=== PATIENT | male | born 1935 | race Caucasian/White ===

== ENCOUNTER 2021-07-27 22:06 | Emergency (ER) | payer SELFPAY ==
[2021-07-27 22:10] VITALS: BP 182/78; PULSE 64; RESP 18; TEMP 36.8; O2SAT 94; BMI 26.1
--- NOTE | 2021-07-27 22:38 | RAD_ITS ---
STUDY: X-RAY - THORACIC SPINE REASON FOR EXAM: Male, 85 years old. injury TECHNIQUE: 3 view(s) of the thoracic spine were obtained. COMPARISON: None. FINDINGS: Normal kyphosis of the thoracic spine. There is no substantial scoliosis. There is demineralization of the thoracic spine with endplate spondylosis. Normal disc space heights. The soft tissue structures are unremarkable. RAD/Thoracic Spine 3 Views IMPRESSION: Endplate degenerative changes and diffuse demineralization with no evidence of underlying compression deformity. If continued back pain recommend MRI imaging as clinically warranted. Electronically Signed: Joe Zavaleta DO at 23:56 EDT , Service support ,
--- NOTE | 2021-07-27 22:38 | RAD_ITS ---
STUDY: X-RAY - LUMBAR SPINE REASON FOR EXAM: Male, 85 years old. injury TECHNIQUE: 3 view(s) of the lumbar spine were obtained. COMPARISON: None FINDINGS: Normal lumbar lordosis. There is no substantial scoliosis. There is a normal alignment of the vertebrae. There is multilevel endplate spondylosis of the lumbar vertebrae. Normal disc space heights. The soft tissue structures are unremarkable. RAD/Lumbar Spine 2 or 3 Views IMPRESSION: Diffuse demineralization with preserved disc space alignment. Electronically Signed: Joe Zavaleta DO at 23:43 EDT , Service support ,
--- NOTE | 2021-07-27 22:39 | EDS_ITS ---
HPI HPI - Fall History of Present Illness Chief Complaint: Fall Informant: patient and family Narrative Narrative: 85-year-old male presents the emergency room with low back pain following a fall. Patient states on Wednesday he was standing on a trailer helping to unload when he stepped into a hole fell off the trailer striking his back on the ground. No loss of consciousness. He notes pain over the upper lumbar lower thoracic region. Today in the afternoon was the first time the family was allowed to give him Tylenol as he was not want anything. He states it is gotten progressively worse. It is sharp with movement but otherwise a dull ache. Denies any radicular symptoms. PFSH PFSH Home Medications docusate sodium [Colace] 100 mg PO DAILY #10 cap 07/28/21 [Rx Last Taken Unknown] oxycodone-acetaminophen 1 tab PO Q6H PRN PRN 3 Days #12 tablet 07/28/21 [Rx Last Taken Unknown] Allergy/AdvReac Type Severity Reaction Status Date / Time No Known Allergies Allergy Verified 07/27/21 22:21 Social History (Updated 07/27/21 @ 22:[address] Dani Galan, DO) current gender identity: male Smoking Status: Former smoker substance use type: does not use ROS ROS ED Constitutional Constitutional ED: Denies chills or weight loss Eyes Eyes: Denies change in vision or diplopia ENT ENT ED: Denies ear pain, rhinorrhea or sore throat Cardiovascular Cardiovascular: Denies chest pain, orthopnea, palpitations or racing heartbeat Respiratory/Chest Respiratory/Chest: Denies cough, dyspnea or orthopnea Gastrointestinal Gastrointestinal: Denies abdominal pain, diarrhea, nausea or vomiting Genitourinary Genitourinary ED: Denies dysuria, hematuria or urinary frequency Musculoskeletal Musculoskeletal: Reports back pain; Denies arthralgias or myalgias Integumentary Denies abscess or rash Neurologic Neurologic: Denies headache(s) or weakness Psychiatric Psychiatric: Denies anxiety, depression, suicidal ideation or suicidal thoughts Endocrine Endocrinology: Denies polydipsia, polyphagia or polyuria Allergic/Immunologic Allergic/Immunologic ED: Denies mouth swelling, tongue swelling or urticaria EXAM Physical Exam Const Vital Signs: 07/27/21 22:10 07/27/21 23:36 Temperature 98.2 F Temperature Source Oral Pulse Rate 64 Respiratory Rate 18 Respiratory Effort Normal Blood Pressure 182/78 H Blood Pressure Mean 112 Pulse Ox 94 Oxygen Delivery Method Room Air Positive well nourished and well developed General Appearance ED: well developed HEENT Reports normocephalic, head/scalp atraumatic, TM's clear and moist mucous membranes atraumatic Tympanic Membrane ED: Yes TM's clear Eyes PERRL and EOMs intact bilaterally Neck full ROM, no lymphadenopathy, supple and no JVD Chest Wall inspection of chest normal Resp normal respiratory effort and clear to auscultation bilaterally Cardio regular rate, regular rhythm and no murmurs GI normal to inspection, nondistended, normoactive bowel sounds and non-tender Palpation: soft Back/Spine no CVA tenderness and normal ROM Back/Spine Narrative: Patient reports tenderness to palpation in the midline in the paraspinal musculature of the upper lumbar lower thoracic region. Extremity normal to inspection General Extremety ED: Negative for edema General Extremity: Negative for edema Neuro oriented x3 and CN's II-XII intact bilaterally Sensorium / Orientation: alert Motor Exam: strength 5/5 throughout Psych mental status grossly normal Mood & Affect: Negative for depressed or tearful Skin no rashes or lesions noted and no wounds MDM MDM MDM Narrative Medical decision making narrative: My interpretation of the plain films of the lumbar spine and thoracic spine showed no acute fracture. Patient received a dose of oxycodone here I can write for him to have some Percocet at home. Has been feeling constipated the past few days ever since the fall. I will write for some Colace that he may wish to picker and sorter load and unload some Dulcolax. Return if worsening or concerns Radiography Diagnostic Testing: Clinical Impression(s) from Imaging Studies Lumbar Spine X-Ray 07/27/21 22:38 IMPRESSION: Diffuse demineralization with preserved disc space alignment. Electronically Signed: Joe Zavaleta DO at 23:43 EDT , Service support , Thoracic Spine X-Ray 07/27/21 22:38 IMPRESSION: Endplate degenerative changes and diffuse demineralization with no evidence of underlying compression deformity. If continued back pain recommend MRI imaging as clinically warranted. Electronically Signed: Joe Zavaleta DO at 23:56 EDT , Service support , Discharge Plan Triage Chief Complaint: Fall ED Provider: Dani Galan Dx/Rx/DC Orders Clinical Impression: Acute lumbar myofascial strain Instructions: ED Back Sprain/Strain Prescriptions: New oxycodone-acetaminophen [oxycodone-acetaminophen] 1 TABLET tablet 1 tab PO Q6H PRN PRN (Reason: Pain) 3 Days Qty: 12 RF: 0 docusate sodium [Colace] 100 mg capsule 100 mg PO DAILY Qty: 10 RF: 0 Primary Care Provider: Care Physician,No Primary Referrals: Care Physician,No Primary [Primary Care Provider] - Disposition Disposition: Home, Self Care
[2021-07-27] MEDS: oxyCODONE 5 MG Tablet PO (23:33)
[2021-07-28 00:41] VITALS: BP 186/74; RESP 12
== END 2021-07-28 00:53 | disposition home or self-care (01) ==
PROVIDERS: Emergency Provider Emergency Medicine
DX: S39.012A Strain of muscle, fascia and tendon of lower back, initial encounter (principal); W17.89XA Other fall from one level to another, initial encounter; Y93.9 Activity, unspecified; Y92.9 Unspecified place or not applicable; Z87.891 Personal history of nicotine dependence
CPT/HCPCS: 72072; 72100; 99284; A4216

== ENCOUNTER 2022-11-14 17:05 | Inpatient (IN) | payer MEDICARE, SELFPAY ==
[2022-11-14] VITALS (11 sets, daily range): BP systolic 181–227; BP diastolic 71–112; PULSE 67–73; RESP 15–18; TEMP 36.7–36.8; O2SAT 76–97; BMI 25.7; BMI 24.2
--- NOTE | 2022-11-14 17:32 | CT_ITS ---
INDICATION: Right-sided abdominal pain EXAMINATION: CT ABDOMEN AND PELVIS WITH CONTRAST - CT Abdomen And Pelvis W/ Contrast Injection TECHNIQUE: Helically acquired images were obtained of the abdomen and pelvis following IV contrast. A radiation dose optimization technique was used for this scan. IV Contrast dosage and agent: 100 mL Isovue-370 Oral contrast: None. COMPARISON: None. FINDINGS: LOWER CHEST: Bibasilar groundglass and nodular infiltrates. No cardiomegaly or pericardial effusion. LIVER: Homogeneous. Multiple cysts. GALLBLADDER AND BILIARY TREE: No calcified gallstones. No gallbladder distension or wall edema. No intra- or extrahepatic biliary ductal dilation. PANCREAS: No focal cystic or solid mass. SPLEEN: Normal size without focal cystic or solid mass. ADRENAL GLANDS: No nodules. KIDNEYS AND URETERS: Right lower pole exophytic dense cyst. Multiple left renal cysts. No hydronephrosis. PERITONEUM: No ascites or free air. No other fluid collection. BOWEL: No evidence of acute appendicitis. No stomach or bowel distension. No focal inflammatory change. LYMPH NODES: No enlarged mesenteric or retroperitoneal lymph nodes. VESSELS: Aorta is non-dilated. URINARY BLADDER: Unremarkable. REPRODUCTIVE ORGANS: Enlarged prostate. ABDOMINAL WALL: No discrete abdominal or pelvic wall hernia. BONES: No lytic or blastic abnormality. CT/Abdomen/Pelvis W IV Cont ONLY IMPRESSION: 1. Dense right renal cyst may be hemorrhagic, which could explain right-sided pain. 2. Bilateral lung base infiltrates/chronic lung disease. Electronically Signed: Noé Olvera MD at 19:25 EST ,
--- NOTE | 2022-11-14 17:32 | EKG12_ITS ---
Test Reason : Blood Pressure : / mmHG Vent. Rate : 074 BPM Atrial Rate : 000 BPM P-R Int : 000 ms QRS Dur : 088 ms QT Int : 378 ms P-R-T Axes : 000 -05 077 degrees QTc Int : 419 ms Atrial fibrillation with premature ventricular or aberrantly conducted complexes Nonspecific ST and T wave abnormality Abnormal ECG Confirmed by HOPE LARRY, ENRIKE ([id number]), acquisition editor DIMA DUQUE ([id number]) on 11/16/2022 12:34:10 PM Referred By: Confirmed By:ENRIKE ARNETT MD
--- NOTE | 2022-11-14 17:33 | EDS_ITS ---
HPI <VIVIAN Nichols - Last Filed: 11/14/22 21:46> History of Present Illness Chief Complaint: Abd Pain Narrative Narrative: The patient is a 87-year-old male who does not see a primary care physician, who has not had any testing completed for multiple years presents to the [facility] for generalized malaise, generalized abdominal pain, decreased failure to thrive over the last 2 to 3 months. Patient arrives with his nephew. Patient states that over the last several weeks, he has had difficulty sleeping secondary to abdominal pain. Patient states he has no appetite. He believes something bad is going to happen. He has not seen a primary care physician or is on medications at this time. He denies any recent fever or chills. Denies any bowel or bladder incontinence, denies any blood in stool or vomit PFSH <VIVIAN Nichols - Last Filed: 11/14/22 21:46> PFSH Medical History (Updated 11/14/22 @ 21:[address] Andres Cortes MD) HTN (hypertension) Allergy/AdvReac Type Severity Reaction Status Date / Time No Known Allergies Allergy Verified 11/14/22 17:06 Family History (Updated 11/14/22 @ 21:[address] Andres Cortes MD) Other CVA (cerebral vascular accident) Cancer Surgical History (Updated 11/14/22 @ 21:[address] Andres Cortes MD) Hx of tonsillectomy Social History Smoking Status: Former smoker substance use type: does not use ROS <VIVIAN Nichols - Last Filed: 11/14/22 21:46> ROS ED ROS Narrative Constitutional: Negative for fever, chills, weight loss. Positive generalized weakness Eyes: Negative for vision loss, vision change, double vision ENT: Negative for any sore throat, ear pain, congestion Cardiovascular: Negative for any chest pain, tightness, palpitations Respiratory: Negative for any sputum production, hemoptysis, dyspnea, dyspnea on exertion, orthopnea. Positive intermittent cough Gastrointestinal: Negative for any nausea, vomiting, diarrhea, constipation, blood in stool, blood in vomit. Positive for abdominal pain : Negative for any urinary frequency, dysuria, retention, blood in urine Muscle skeletal: Negative for any muscle joint pain, stiffness, myalgias, arthralgias, neck pain, back pain Neurological: Negative for any headache, syncope, numbness or tingling, dizziness Skin: Negative for any rashes, lumps, itching, abrasions, lacerations Psychiatric: Negative for any depression, anxiety, stress, suicidal ideation, homicidal ideation Hematologic: Negative for any easy bruising, excessive bruising, easy bleeding Allergies: Negative for any eczema, hives, rash EXAM <VIVIAN Nichols - Last Filed: 11/14/22 21:46> Physical Exam Narrative Exam Narrative: Vital signs reviewed. Patient is tearful on initial exam. Patient has multiple minor complaints that has been going on for long periods of time. Patient alert and orient x4. HEET: Head normocephalic atraumatic, TMs clear bilaterally. Posterior pharynx is clear, moist mucous membranes. Nares clear bilaterally. Neck: Supple with no lymphadenopathy or tenderness. No signs of meningismus, negative jolt sign. Cardiac: Regular rate and rhythm no murmurs gallops or rubs, equal peripheral pulses bilaterally. Respiratory: Diminished lung sounds in the bases. No chest tenderness. Abdomen: Soft, nontender, nondistended. No abdominal bruit or pulsatile masses. No hepatosplenomegaly Extremities: No peripheral edema, no signs of gross trauma or deformity. Active full range of motion of all extremities. Neuro: Cranial nerves II through XII intact, no focal neurological deficits. Skin: Clean dry and intact with no rash, purpura, petechiae, vesicles or pustules. Backs/flank: No CVA tenderness, no midline spinal tenderness, no deformity. Psych: Normal mood and affect. No SI, HI or acute psychosis. Const Vital Signs: 11/14/22 17:06 11/14/22 18:07 11/14/22 18:30 Temperature 98.1 F Temperature Source Temporal Pulse Rate 71 Respiratory Rate 18 Blood Pressure 216/112 H 227/81 H 192/85 H Blood Pressure Mean 146 129 120 Pulse Ox 92 Oxygen Delivery Method Room Air Oxygen Flow Rate (L/min) 11/14/22 19:53 11/14/22 20:21 11/14/22 20:15 Temperature Temperature Source Pulse Rate 72 70 Respiratory Rate 15 16 16 Blood Pressure 207/94 H 193/71 H Blood Pressure Mean 131 111 Pulse Ox 90 96 76 Oxygen Delivery Method Room Air Nasal Cannula Room Air Oxygen Flow Rate (L/min) 2 Positive well nourished and well developed General Appearance ED: well developed <Dr. Demetri Patel DO - Last Filed: 11/14/22 22:47> Physical Exam Const Vital Signs: 11/14/22 17:06 11/14/22 18:07 11/14/22 18:30 Temperature 98.1 F Temperature Source Temporal Pulse Rate 71 Respiratory Rate 18 Blood Pressure 216/112 H 227/81 H 192/85 H Blood Pressure Mean 146 129 120 Pulse Ox 92 Oxygen Delivery Method Room Air Oxygen Flow Rate (L/min) 11/14/22 19:53 11/14/22 20:21 11/14/22 20:15 Temperature Temperature Source Pulse Rate 72 70 Respiratory Rate 15 16 16 Blood Pressure 207/94 H 193/71 H Blood Pressure Mean 131 111 Pulse Ox 90 96 76 Oxygen Delivery Method Room Air Nasal Cannula Room Air Oxygen Flow Rate (L/min) 2 MDM <VIVIAN Nichols - Last Filed: 11/14/22 21:46> MDM Lab Data Attestation: I reviewed the patient's lab results. Labs: Laboratory Results - last 24 hr 11/14/22 11/14/22 11/14/22 17:50 17:55 17:55 WBC 11.5 H RBC 4.51 L Hgb 14.4 Hct 43.8 MCV 97.1 H MCH 31.9 MCHC 32.9 RDW Std Deviation 48.1 H RDW Coeff of Sixto 13.3 Plt Count 466 H MPV 9.6 Immature Gran % (Auto) 0.400 Neut % (Auto) 73.4 H Lymph % (Auto) 15.4 L [place] % (Auto) 7.9 Eos % (Auto) 2.6 Baso % (Auto) 0.3 Absolute Neuts (auto) 8.5 H Absolute Lymphs (auto) 1.78 Nucleated RBC % 0 Sodium 140 Potassium 4.1 Chloride 104 Carbon Dioxide 29.0 Anion Gap 7 BUN 13 Creatinine 1.08 Estim Creat Clear Calc 53.26 Est GFR (MDRD) Af Amer 84 Est GFR (MDRD) Non-Af 69 BUN/Creatinine Ratio 12.0 Glucose 106 Calcium 9.5 Magnesium Total Bilirubin 0.60 Direct Bilirubin 0.19 AST 6 L ALT 15 L Alkaline Phosphatase 110 Troponin I High Sens 12 B-Natriuretic Peptide Total Protein 8.0 Albumin 3.7 Globulin 4.3 H Lipase 66 L TSH Urine Color Yellow Urine Clarity Clear Urine pH 6.5 Ur Specific [place] 1.010 Urine Protein 30 H Urine Glucose (UA) Normal Urine Ketones Negative Urine Occult Blood Negative Urine Nitrite Negative Urine Bilirubin Negative Urine Urobilinogen Normal Ur Leukocyte Esterase Negative Urine RBC 0 SEEN Urine WBC 0 SEEN Ur Squamous Epith Cells 0 SEEN Urine Bacteria 0 SEEN Urine Mucus 0 SEEN 11/14/22 11/14/22 17:55 17:55 WBC RBC Hgb Hct MCV MCH MCHC RDW Std Deviation RDW Coeff of Sixto Plt Count MPV Immature Gran % (Auto) Neut % (Auto) Lymph % (Auto) [place] % (Auto) Eos % (Auto) Baso % (Auto) Absolute Neuts (auto) Absolute Lymphs (auto) Nucleated RBC % Sodium Potassium Chloride Carbon Dioxide Anion Gap BUN Creatinine Estim Creat Clear Calc Est GFR (MDRD) Af Amer Est GFR (MDRD) Non-Af BUN/Creatinine Ratio Glucose Calcium Magnesium 2.3 Total Bilirubin Direct Bilirubin AST ALT Alkaline Phosphatase Troponin I High Sens B-Natriuretic Peptide 123.5 H Total Protein Albumin Globulin Lipase TSH 4.79 H Urine Color Urine Clarity Urine pH Ur Specific [place] Urine Protein Urine Glucose (UA) Urine Ketones Urine Occult Blood Urine Nitrite Urine Bilirubin Urine Urobilinogen Ur Leukocyte Esterase Urine RBC Urine WBC Ur Squamous Epith Cells Urine Bacteria Urine Mucus Radiography Diagnostic Testing: Clinical Impression(s) from Imaging Studies Abdomen/Pelvis CT 11/14/22 17:32 IMPRESSION: 1. Dense right renal cyst may be hemorrhagic, which could explain right-sided pain. 2. Bilateral lung base infiltrates/chronic lung disease. Electronically Signed: Noé Olvera MD at 19:25 EST , Chest X-Ray 11/14/22 18:50 IMPRESSION: Left lung base atelectasis/infiltrate. Electronically Signed: Noé Olvera MD at 20:43 EST , EKG Atrial fibrillation: Attestation: I personally reviewed and interpreted this EKG as follows: Comments: Atrial fibrillation with premature ventricular complexes, rate of 74 bpm, QRS duration 88 ms, no acute ST elevation, no acute infarct noted. Treatment and Re-Evaluation Narrative: All radiologic examinations were read, reviewed by the emergency department attending. From these reads, a plan of care will be put in place. Patient presents to the emergency department with elevated blood pressure, no significant red flag signs, no signs or symptoms of sepsis. Patient presents to the emergency department for ongoing shortness of breath, abdominal pain and not following up with any PCP. Patient did receive a full work-up. Patient's CBC showed a slight leukocytosis with white blood count 11.5. Patient's chemistries were unremarkable. Patient's lipase was negative, patient's troponin was 12 which was negative. Patient's EKG did show atrial fibrillation however the rate was controlled. There is no telling how long the patient has been in atrial fibrillation. Patient's blood pressure was elevated with 200/100, he was treated with 10 mg of hydralazine, new blood pressure was 193/71. Patient did receive a CT scan of the abdomen pelvis, this showed a dense right renal cyst may be hemorrhagic, which could explain right-sided pain. Bilateral lung base infiltrates, chronic lung disease. Patient did receive a 1 view chest x-ray, this did show left lung base atelectasis. Patient has no cough, infectious-like symptoms. Patient did ambulate around the department, patient's pulse oxygenation dropped to the high 70s. Patient will need to be admitted to the hospital. I did speak with cardiology who recommended possible CT scan of the chest to rule out a pulmonary embolus. Patient is admitted to hospitalist. He will follow-up on the CAT scan of the chest to rule out any pulmonary embolus <Dr. Demetri Patel, DO - Last Filed: 11/14/22 22:47> [facility] Narrative Medical decision making narrative: This patient was seen with a PA/CLEAN ROOM OPERATOR Individually assessed they patient including history and physical. I have reviewed everything on the chart that is available and agree with the documentation provided by the PA/CLEAN ROOM OPERATOR including discussion about the assessment, treatment plan, discussion, and return precautions. 87-year-old male initially presenting with complaints of abdominal pain, shortness of breath. Patient found to be significantly hypertensive. Patient reports that he had recently been very ill. Does not believe he had a fever. Differential includes but not limited to hypertension urgency, pneumonia, ACS, aortic dissection, bowel obstruction, viral etiology, PE. Patient noted to be slightly hypoxic. EKG is atrial fibrillation at a controlled ventricular response at 74 bpm. This would be new onset atrial fibrillation however. Patient does not know how long this has been present. CBC was obtained and shows no leukocytosis. Lab work otherwise was unremarkable. High since her troponin 12. Patient's blood pressure was addressed. He was given 10 mg of hydralazine. His blood pressure dropped to 193/71 from 227/81. C chest x-ray on my interpretation shows possible small bilateral infiltrates in the bases. Radiology interpretation agrees. Patient noted to be more hypoxic. He was ambulated in the hallway and dropped into the mid 70s on room air patient initially on 3 L of oxygen after this and then weaned to 2. CT of the abdomen pelvis was obtained initially as his chief complaint was abdominal pain and this shows a possible hemorrhagic cyst in the right kidney. Since the patient is not hypoxic I do need to rule out PE. Patient will need to be admitted so we will obtain a CTA. He will be given IV fluids per protocol. CTA performed today was negative for acute PE, dissection, but does show multifocal infiltrates. Patient was given Rocephin and azithromycin. Discussed with hospitalist for admission. Impression: 1. Bilateral pneumonia 2. Leukocytosis 3. Hypoxic respiratory failure 4. Abdominal pain 5. Hypertension 6. New onset A-fib Lab Data Labs: Laboratory Results - last 24 hr 11/14/22 11/14/22 11/14/22 17:50 17:55 17:55 WBC 11.5 H RBC 4.51 L Hgb 14.4 Hct 43.8 MCV 97.1 H MCH 31.9 MCHC 32.9 RDW Std Deviation 48.1 H RDW Coeff of Sixto 13.3 Plt Count 466 H MPV 9.6 Immature Gran % (Auto) 0.400 Neut % (Auto) 73.4 H Lymph % (Auto) 15.4 L [place] % (Auto) 7.9 Eos % (Auto) 2.6 Baso % (Auto) 0.3 Absolute Neuts (auto) 8.5 H Absolute Lymphs (auto) 1.78 Nucleated RBC % 0 Sodium 140 Potassium 4.1 Chloride 104 Carbon Dioxide 29.0 Anion Gap 7 BUN 13 Creatinine 1.08 Estim Creat Clear Calc 53.26 Est GFR (MDRD) Af Amer 84 Est GFR (MDRD) Non-Af 69 BUN/Creatinine Ratio 12.0 Glucose 106 Calcium 9.5 Magnesium Total Bilirubin 0.60 Direct Bilirubin 0.19 AST 6 L ALT 15 L Alkaline Phosphatase 110 Troponin I High Sens 12 B-Natriuretic Peptide Total Protein 8.0 Albumin 3.7 Globulin 4.3 H Lipase 66 L TSH Urine Color Yellow Urine Clarity Clear Urine pH 6.5 Ur Specific [place] 1.010 Urine Protein 30 H Urine Glucose (UA) Normal Urine Ketones Negative Urine Occult Blood Negative Urine Nitrite Negative Urine Bilirubin Negative Urine Urobilinogen Normal Ur Leukocyte Esterase Negative Urine RBC 0 SEEN Urine WBC 0 SEEN Ur Squamous Epith Cells 0 SEEN Urine Bacteria 0 SEEN Urine Mucus 0 SEEN 11/14/22 11/14/22 17:55 17:55 WBC RBC Hgb Hct MCV MCH MCHC RDW Std Deviation RDW Coeff of Sixto Plt Count MPV Immature Gran % (Auto) Neut % (Auto) Lymph % (Auto) [place] % (Auto) Eos % (Auto) Baso % (Auto) Absolute Neuts (auto) Absolute Lymphs (auto) Nucleated RBC % Sodium Potassium Chloride Carbon Dioxide Anion Gap BUN Creatinine Estim Creat Clear Calc Est GFR (MDRD) Af Amer Est GFR (MDRD) Non-Af BUN/Creatinine Ratio Glucose Calcium Magnesium 2.3 Total Bilirubin Direct Bilirubin AST ALT Alkaline Phosphatase Troponin I High Sens B-Natriuretic Peptide 123.5 H Total Protein Albumin Globulin Lipase TSH 4.79 H Urine Color Urine Clarity Urine pH Ur Specific [place] Urine Protein Urine Glucose (UA) Urine Ketones Urine Occult Blood Urine Nitrite Urine Bilirubin Urine Urobilinogen Ur Leukocyte Esterase Urine RBC Urine WBC Ur Squamous Epith Cells Urine Bacteria Urine Mucus Radiography Diagnostic Testing: Clinical Impression(s) from Imaging Studies Abdomen/Pelvis CT 11/14/22 17:32 IMPRESSION: 1. Dense right renal cyst may be hemorrhagic, which could explain right-sided pain. 2. Bilateral lung base infiltrates/chronic lung disease. Electronically Signed: Noé Olvera MD at 19:25 EST , Chest X-Ray 11/14/22 18:50 IMPRESSION: Left lung base atelectasis/infiltrate. Electronically Signed: Noé Olvera MD at 20:43 EST , Discharge Plan Disposition Disposition: Acute Care Hospital [facility] Discharge Date/Time: 11/14/22 22:22
[2022-11-14 17:52] LABS: Bacteria 0 SEEN /hpf (None Seen); Mucous, Urine 0 SEEN /hpf (<or=2+); Red Blood Cells-Urine 0 SEEN /hpf (0-5); Squamous Epithelial Cells - UA 0 SEEN /hpf (0-5); White Blood Cells 0 SEEN /hpf (0-5)
[2022-11-14 17:54] LABS: Color, Urine Yellow (Yellow); Glucose, Dipstick Normal (Normal); Ketone-Dipstick Negative (Negative); Leukocyte Esterase-Dipstick Negative /ul (Negative); Nitrite-Dipstick Negative (Negative); Occult Blood-Urine Negative /ul (Negative); Protein-Dipstick 30 mg/dl (Negative); Urine Bilirubin Dipstick Negative (Negative); Urine Clarity Clear (Clear); Urine Urobilinogen Normal (Normal); Urine pH 6.5 (5.0 - 8.0)
[2022-11-14] MEDS: Ondansetron 4 MG/2 ML Vial IV (18:04)
[2022-11-14] MEDS: Morphine 4 MG/ML Syringe IV (18:04)
[2022-11-14] MEDS: 0.9% Normal Saline 1,000 ML 1000 ML IV (18:05)
[2022-11-14 18:06] LABS: Absolute Lymphocyte Count 1.78 X10^3/uL (0.83-4.51); Absolute Neutrophil Count 8.5 X10^3/uL (2.0-7.7); Basophil# 0.04 X10^3/uL; Basophil% 0.3 % (0-1); Eosinophils% 2.6 % (0-5); Hematocrit 43.8 % (40-54); Hemoglobin 14.4 g/dL (13.0-16.5); Lymphocyte # 1.78 X10^3/ul (0.83-4.51); Lymphocyte % 15.4 % (19-41); Mean Corp Hgb Conc 32.9 g/dL (32-36); Mean Corpuscular Hgb 31.9 pg (27.0-32.0); Mean Corpuscular Volume 97.1 fL (80-94); Mean Platelet Vol. 9.6 fl (6.2-12.0); Monocyte# 0.91 X10^3/uL; Monocyte% 7.9 % (0-10); NRBC Flagged by Analyzer 0 % (0-5); Neutrophil # 8.45 X10^3/uL (2.7-7.7); Neutrophil % 73.4 % (47-70); Platelet Count 466 K/mm3 (150-450); RBC Distribution Width CV 13.3 % (11.6-14.6); RBC Distribution Width SD 48.1 fl (35.1-43.9); Red Blood Count 4.51 M/mm3 (4.6-6.2); White Blood Count 11.5 K/mm3 (4.4-11.0)
[2022-11-14 18:27] LABS: AST(SGOT) 6 U/L (15-37); Alanine Aminotransfer ALT/SGPT 15 U/L (16-61); Albumin, Serum 3.7 g/dL (3.2-5.0); Alkaline Phosphatase 110 U/L (45-117); Anion Gap 7 (5-15); BUN 13 mg/dL (7-18); Bilirubin, Direct 0.19 mg/dL (0.00-0.30); Calcium,Total 9.5 mg/dL (8.5-10.1); Chloride 104 mmol/L (98-107); Creatinine, Serum 1.08 mg/dL (0.70-1.30); EST Glomerular Filtration Rate 69 mL/min (>60); Est Glom Filt Rate - Afr Amer 84 mL/min (>60); Estimated Creatinine Clearance 53.26 ml/min; Globulin 4.3 g/dL (2.2-4.2); Glucose 106 mg/dL (74-106); Lipase 66 U/L (73-393); Potassium 4.1 mmol/L (3.5-5.1); Sodium Level 140 mmol/L (136-145); Troponin-I HS 12 pg/mL (3.0-78.0)
--- NOTE | 2022-11-14 18:50 | RAD_ITS ---
INDICATION: Cough EXAMINATION/TECHNIQUE: X-RAY - XR Chest 1 View COMPARISON: None. FINDINGS: LINES/DEVICES: None. LUNGS: Left lung base atelectasis/infiltrate. MEDIASTINUM AND CARDIOVASCULAR STRUCTURES: Cardiac silhouette not enlarged. Central airways and mediastinal contour are unremarkable. RAD/Chest 1 View (Portable) IMPRESSION: Left lung base atelectasis/infiltrate. Electronically Signed: Noé Olvera MD at 20:43 EST ,
[2022-11-14] MEDS: hydrALAZINE 20 MG/ML Vial 10 MG IV (19:04)
--- NOTE | 2022-11-14 20:57 | HP.PCM.HOS_ITS ---
HPI - General General Date of Admission: 11/14/22 Date of Service: 11/14/22 Chief Complaint: Anorexia HPI Narrative JOE RAMIREZ, is a 87 M with a significant history of hypertension; former tobacco abuse; and former alcoholic who has not seen a doctor for many years except ED visits in July 2021 presents emergency department with a neurology that started Wednesday before 2021. Reportedly he feels full and bloated all the time. Also he has a pain at the right lumbar area of his abdomen. He rated pain as 5/10. He described the pain as pain . Also a complaint of left sided pain that he states is episodic and occasionally can be severe. This pain he states when it comes on it can be a solid. Occasionally the pain radiates to his entire chest. Also he reports orthopnea and paroxysmal nocturnal dyspnea. He is unable to lay on his right side because of shortness of breath. He reports of edema in bilateral legs. Because of the edema he bought himself a ELIEL hose which she wears. At the time of presentation he had no edema. Patient reports palpitations. Also patient has had malaise. At the emergency department because patient was hypoxic with oxygen saturation in the 70s with ambulation decision was made for patient to stay at the hospital. CT chest at the emergency department showed a possible right hemorrhagic cyst. Also there was multiple liver cysts. And multiple left renal cyst. Patient was found to be in A-fib at a controlled rate. Emergency department doctor discussed with cardiology as the plan was to discharge patient home initially and to follow-up with cardiology. With hypoxia cardiology recommended a CT scan of patient's chest and also decision was made for patient to be admitt ed to the hospital [facility], [facility] Medical History HTN (hypertension) Allergy/AdvReac Type Severity Reaction Status Date / Time No Known Allergies Allergy Verified 11/14/22 17:06 Family History Other CVA (cerebral vascular accident) Cancer Surgical History Hx of tonsillectomy Social History housing: house Smoking Status: Former smoker substance use type: does not use ROS ROS Narrative Pertinent positives and pertinent negatives as noted in HPI. All other systems were reviewed and are negative Vital Signs Vital Signs Vital Signs: 11/14/22 17:06 11/14/22 18:07 11/14/22 18:30 Temperature 98.1 F Temperature Source Temporal Pulse Rate 71 Respiratory Rate 18 Blood Pressure 216/112 H 227/81 H 192/85 H Blood Pressure Mean 146 129 120 Pulse Ox 92 Oxygen Delivery Method Room Air Oxygen Flow Rate (L/min) 11/14/22 19:53 11/14/22 20:21 11/14/22 20:15 Temperature Temperature Source Pulse Rate 72 70 Respiratory Rate 15 16 16 Blood Pressure 207/94 H 193/71 H Blood Pressure Mean 131 111 Pulse Ox 90 96 76 Oxygen Delivery Method Room Air Nasal Cannula Room Air Oxygen Flow Rate (L/min) 2 Weight Weight: 83.915 kg Body Mass Index (BMI) 25.7 Physical Exam Narrative Physical exam: General: Well-nourished, well-developed. Head: Normocephalic, atraumatic, no tenderness Eyes: Vision is grossly intact. EOMI ENT, no trauma, moist mucous membranes, no rhinorrhea Neck: Nontender, No thyromegaly. CVS: Irregularly irregular rate and rhythm. S1-S2 present. No murmur, gallop or rub. Respiratory : clear to auscultation bilaterally, chest wall nontender, no wheezing Abdomen: Soft, nontender, nondistended, normal bowel sounds, no masses : Deferred Back: Nontender, no CVA tenderness, no midline spinal tenderness, deformities, step-offs Extremities: Nontender full range of motion, no trauma Skin: Normal color, no trauma, abrasions Neuro: Alert, oriented, cranial nerves II through XII grossly intact. Psychiatry: Normal mood. Normal affect. Not depressed. Not anxious. Results Lab / Micro Data Result Diagrams: 11/14/22 17:55 11/14/22 17:55 Labs: Laboratory Results - last 24 hr 11/14/22 17:50: Urine Color Yellow, Urine Clarity Clear, Urine pH 6.5, Ur Specific [place] 1.010, Urine Protein 30 H, Urine Glucose (UA) Normal, Urine Ketones Negative, Urine Occult Blood Negative, Urine Nitrite Negative, Urine Bilirubin Negative, Urine Urobilinogen Normal, Ur Leukocyte Esterase Negative, Urine RBC 0 SEEN, Urine WBC 0 SEEN, Ur Squamous Epith Cells 0 SEEN, Urine Bacteria 0 SEEN, Urine Mucus 0 SEEN 11/14/22 17:55: WBC 11.5 H, RBC 4.51 L, Hgb 14.4, Hct 43.8, MCV 97.1 H, MCH 31.9, MCHC 32.9, RDW Std Deviation 48.1 H, RDW Coeff of Sixto 13.3, Plt Count 466 H, MPV 9.6, Immature Gran % (Auto) 0.400, Neut % (Auto) 73.4 H, Lymph % (Auto) 15.4 L, [place] % (Auto) 7.9, Eos % (Auto) 2.6, Baso % (Auto) 0.3, Absolute Neuts (auto) 8.5 H, Absolute Lymphs (auto) 1.78, Nucleated RBC % 0 11/14/22 17:55: Sodium 140, Potassium 4.1, Chloride 104, Carbon Dioxide 29.0, Anion Gap 7, BUN 13, Creatinine 1.08, Estim Creat Clear Calc 53.26, Est GFR (MDRD) Af Amer 84, Est GFR (MDRD) Non-Af 69, BUN/Creatinine Ratio 12.0, Glucose 106, Calcium 9.5, Total Bilirubin 0.60, Direct Bilirubin 0.19, AST 6 L, ALT 15 L , Alkaline Phosphatase 110, Troponin I High Sens 12, Total Protein 8.0, Albumin 3.7, Globulin 4.3 H, Lipase 66 L Radiology Impression Abdomen/Pelvis CT 11/14/22 17:32 IMPRESSION: 1. Dense right renal cyst may be hemorrhagic, which could explain right-sided pain. 2. Bilateral lung base infiltrates/chronic lung disease. Electronically Signed: Noé Olvera MD at 19:25 EST , Chest X-Ray 11/14/22 18:50 IMPRESSION: Left lung base atelectasis/infiltrate. Electronically Signed: Noé Olvera MD at 20:43 EST , Assessment & Plan Assessment/Plan (1) Hypoxia: (2) Kidney cysts: (3) Liver cyst: (4) Hypertensive urgency: (5) Atrial fibrillation: PLAN: Plan Hypoxia Oxygen saturation in the 70s of ambulation Etiology unclear. Impression of abdomen/pelvis CT by radiologist: Bilateral infiltrates/chronic lung disease. Impression of x-ray by radiologist: Left lung base atelectasis/infiltrates. X- ray was independently visualized and interpreted and I agree with this in terpretation. Incentive spirometer ordered. Follow-up CTA chest. Rapid COVID and influenza screen ordered. CBC is only mildly elevated 11,500, trend. Atrial fibrillation EKG showed atrial fibrillation. Of note patient does not follow-up with a doctor so it is unclear how long he has been in A-fib. Patient is not a rapid ventricle response. No anticoagulation because of a possible hemorrhagic cyst of right kidney. TSH and magnesium ordered. Potassium 4.1. Hypertensive urgency Systolic blood pressure more than 180 on presentation. Patient reported that he has a diagnosis of hypertension but does not take any medication. In fact he has no PCP and follows up with no provider. Arterial duplex ultrasound of kidneys ordered. Hemorrhagic cyst and liver cyst. Ultrasound of kidneys ordered Chest pain EKG with A-fib. Trend troponin. Daily aspirin ordered. Check lipid profile. 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 No previous records to compare with. With patient age anticipates CKD. Creatinine is normal. Trend BMP. DVT prophylaxis: SCDs ordered. Charges/Coding Visit Charges Inpatient E&M: 24564 Init Hosp L3
--- NOTE | 2022-11-14 20:59 | CT_ITS ---
STUDY: CTA CHEST REASON FOR EXAM: Male, 87 years old. Hypoxia RADIATION DOSAGE (If Supplied By Facility): CTDIvol = ( 13.11 ) mGy, DLP = ( 475.69 ) mGycm TECHNIQUE: The examination was performed with the intravenous administration of IV 75 mL Isovue-370. Post-processing of the angiographic images was performed, with multiplanar reformation and 3D reconstruction. Individualized dose optimization techniques were used for this CT. COMPARISON: Same day chest x-ray FINDINGS: Normal enhancement of the main pulmonary artery and right and left pulmonary arteries. Normal enhancement of the bilateral peripheral pulmonary arteries. There is no demonstrated pulmonary embolism. Normal thoracic aorta and visualized great vessels. There is no demonstrated aortic dissection. Normal heart and pericardium. Normal mediastinum. Normal hilar regions. Normal visualized trachea and bronchi. The lungs are well expanded. Scattered tree-in-bud and nodular densities in both lungs. Normal pleura. Normal chest wall structures. Normal thoracolumbar vertebral alignment. CT/CTA Chest W/WO Contrast IMPRESSION: Findings suspicious for multifocal pulmonary infection. Normal CTA chest examination, without a demonstrated pulmonary embolism or arterial dissection. Electronically Signed: Noé Olvera MD at 22:29 [facility] ,
[2022-11-14 21:17] LABS: BNP,B-Type NATRIURETIC PEPTIDE 123.5 pg/mL (0-100)
[2022-11-14 21:30] LABS: Magnesium 2.3 mg/dL (1.6-2.6); Thyroid Stim Hormone (TSH) 4.79 uIU/mL (0.358-3.74)
--- NOTE | 2022-11-14 22:39 | ECHOD_ITS ---
Reason For Study: A. fib/flutter Procedure This was a 2D Doppler, Color Flow transthoracic echocardiogram. Exam performed portable in patient room. Left Ventricle Normal LV size. Mild concentric left ventricular hypertrophy. Left ventricular systolic function is normal. The estimated ejection fraction is 75 %. Unable to assess diastolic dysfunction due to arrhythmia. No regional wall motion abnormalities noted. Right Ventricle Normal RV size. Normal systolic function. Atria Normal left atrium. Normal right atrium. Mitral Valve Normal mitral valve. Tricuspid Valve Normal tricuspid valve. Mild (1+) tricuspid valve insufficiency. Pulmonary artery systolic pressure is 44 mmHg. Aortic Valve Normal aortic valve. Mild (1+) eccentric aortic valve insufficiency. Pulmonic Valve Normal pulmonic valve. Great Vessels Mild to moderately dilated aortic root. The pulmonary artery is normal size. Normal inferior vena cava. Pericardium/Pleural No pericardial effusion. MMode/2D Measurements & Calculations LVIDd: 4.6 cm IVSd: 1.4 cm Ao root diam: 4.1 cm LVIDs: 2.6 cm LVPWd: 1.4 cm RVDd: 3.3 cm FS: 44.3 % LAV(MOD-bp): 97.4 ml LVAd ap4: 32.0 cm2 LVAd ap2: 30.5 cm2 LAV(MOD-bp) Indexed: 49.1 ml/m2 LVLd ap4: 8.9 cm LVLd ap2: 8.7 cm LAV(MOD-sp2): 93.1 ml EDV(MOD-sp4): 97.0 ml EDV(MOD-sp2): 91.5 ml LAV(MOD-sp4): 88.1 ml EDV(sp4-el): 97.4 ml EDV(sp2-el): 90.4 ml LVAs ap4: 16.3 cm2 LVAs ap2: 15.1 cm2 LVLs ap4: 7.5 cm LVLs ap2: 7.4 cm ESV(MOD-sp4): 35.0 ml ESV(MOD-sp2): 27.5 ml ESV(sp4-el): 30.3 ml ESV(sp2-el): 26.3 ml EF(MOD-sp4): 63.9 % EF(MOD-sp2): 70.0 % EF(sp4-el): 68.9 % SV(MOD-sp4): 62.0 ml SV(MOD-sp2): 64.0 ml SV(sp4-el): 67.1 ml LA dimension(2D): 4.0 cm LA A4 area: 27.3 cm2 RA A4 area: 21.6 cm2 Doppler Measurements & Calculations MV E max srinath: 86.1 cm/sec Lat Peak E' Srinath: 10.9 cm/sec Med Peak E' Srinath: 10.2 cm/sec E/E' lat: 7.9 E/E' med: 8.5 Ao V2 max: 174.8 cm/sec AI max srinath: 409.6 cm/sec LV V1 max: 133.2 cm/sec Ao max P.2 mmHg AI max P.1 mmHg LV V1 max P.1 mmHg AI dec slope: 211.9 cm/sec2 AI P1/2t: 566.2 msec PA V2 max: 128.6 cm/sec TR max srinath: 318.1 cm/sec TR max P.5 mmHg ECHO/Echo Complete Interpretation Summary Normal LV size. Left ventricular systolic function is normal. The estimated ejection fraction is 75 %. Mild concentric left ventricular hypertrophy. Unable to assess diastolic dysfunction due to arrhythmia. Pulmonary artery systolic pressure is 44 mmHg. Mild to moderately dilated aortic root. Ordering Physician: Andres Cortes Performed By: Niya Mackey RDCS
[2022-11-14] MEDS: 0.9% Normal Saline 1,000 ML 100 ML IV (23:00)
[2022-11-14] MEDS: 0.9% Saline Lock 10 ML Syringe IV (23:27)
[2022-11-14 23:29] LABS: Troponin-I HS 18 pg/mL (3.0-78.0)
[2022-11-14] MEDS: Ceftriaxone 1 GM/50 ML BAG IV (23:30)
[2022-11-14] MEDS: amLODIPine 5 MG Tablet PO (23:45)
[2022-11-15] VITALS (8 sets, daily range): BP systolic 144–184; BP diastolic 63–93; PULSE 52–88; RESP 18–24; TEMP 36.4–36.9; O2SAT 93–97
[2022-11-15 03:13] LABS: Absolute Lymphocyte Count 1.65 X10^3/uL (0.83-4.51); Absolute Neutrophil Count 8.6 X10^3/uL (2.0-7.7); Basophil# 0.03 X10^3/uL; Basophil% 0.3 % (0-1); Eosinophil# 0.27 X10^3/uL; Eosinophils% 2.3 % (0-5); Hematocrit 37.8 % (40-54); Hemoglobin 12.3 g/dL (13.0-16.5); Lymphocyte # 1.65 X10^3/ul (0.83-4.51); Lymphocyte % 14.3 % (19-41); Mean Corp Hgb Conc 32.5 g/dL (32-36); Mean Corpuscular Hgb 31.9 pg (27.0-32.0); Mean Corpuscular Volume 98.2 fL (80-94); Mean Platelet Vol. 9.3 fl (6.2-12.0); Monocyte# 0.97 X10^3/uL; Monocyte% 8.4 % (0-10); NRBC Flagged by Analyzer 0 % (0-5); Neutrophil % 74.5 % (47-70); Platelet Count 369 K/mm3 (150-450); RBC Distribution Width CV 13.5 % (11.6-14.6); RBC Distribution Width SD 48.3 fl (35.1-43.9); Red Blood Count 3.85 M/mm3 (4.6-6.2); White Blood Count 11.5 K/mm3 (4.4-11.0)
[2022-11-15 03:45] LABS: Troponin-I HS 17 pg/mL (3.0-78.0)
[2022-11-15 03:51] LABS: Anion Gap 6 (5-15); BUN 12 mg/dL (7-18); BUN/Creat Ratio 12.8 RATIO (10-20); Calcium,Total 8.2 mg/dL (8.5-10.1); Chloride 106 mmol/L (98-107); Cholesterol 122 mg/dL (200); Creatinine, Serum 0.94 mg/dL (0.70-1.30); EST Glomerular Filtration Rate 81 mL/min (>60); Est Glom Filt Rate - Afr Amer 98 mL/min (>60); Estimated Creatinine Clearance 61.19 ml/min; Glucose 109 mg/dL (74-106); High Density Lipoprotein 37 mg/dL; Procalcitonin 0.07 ng/mL (0.00-0.09); Sodium Level 140 mmol/L (136-145); Triglycerides 75 mg/dL; Very Low Density Lipoprotein 15 mg/dL (5-40)
--- NOTE | 2022-11-15 05:55 | RDU_ITS ---
Reason For Study: HYPERTENSION Right Renal Artery Left Renal Artery Right renal artery ostium 90.7/14.4 Left renal artery ostium 88.9/16.3 RSV/EDV. PSV/EDV. Right renal artery proximal Left renal artery proximal PSV/EDV 73.0/14.4 PSV/EDV. 140.7/26.7 . Right renal artery mid 100.2/18.5 Left renal artery mid 104.4/16.3 PSV/EDV. PSV/EDV . Right renal artery distal 86.6/17.2 Left renal artery distal 135.5/24.1 PSV/EDV. PSV/EDV. Right Renal Parenchyma Left Renal Parenchyma Upper Pole Medula 48.2/10.6 Left upper pole medulla 39.9/6.7 PSV/EDV. PSV/EDV . Right upper pole medulla EDR 0.20 . Left upper pole medulla EDR 0.20 . Right upper pole medulla R.I. Left upper pole medulla R.I. 0.83 . 0.78 . UP Cortex 20.2/4.9 PSV/EDV. Upper Michael Cortx 19.2/5.6 PSV/EDV. Left upper pole cortex EDR 0.20 . Right upper pole cortex EDR 0.30 . Left upper pole cortex R.I. 0.76 . Right upper pole cortex R.I. 0.71 . Left lower Pole medulla 34.9/10.4 Right lower Pole medulla 48.2/13.2 PSV/EDV . PSV/EDV . Left lower pole medulla EDR 0.30 . Right lower pole medulla EDR 0.30 . Left lower pole medulla R.I. 0.70 . Right lower pole medulla R.I. Lower Pole Cortx 16.7/6.5 PSV/EDV. 0.73 . Left lower pole cortex EDR 0.72 . Lower Pole Cortex 19.8/6.3 PSV/EDV. Left lower pole cortex R.I. 0.30 . Right lower pole cortex EDR 0.30 . Left Renal Hilar Right lower pole cortex R.I. 0.68 . LT Hilar avg 74.8/14.6 PSV/EDV . Right Renal Hilar Left hilar acceleration time 50 Right Hilar avg 178.7/12.8 PSV/EDV. m/sec. Right hilar acceleration time 50 Left Renal Dimensions m/sec. Multiple cysts noted in LT Kidney Right Renal Dimensions measuring approximately 3.32cm x Right kidney size 10.78 cm . 3.27cm and 2.87cm x 4.15cm Right cortical dimension 1.73 cm . Measurements may be underestimated due to cysts. Left kidney size 8.95 cm . Left cortical dimension 1.02 cm . Aorta Unable to visualize prox AO due to gas / shadowing. Distal abdominal aorta 1.53 x 1.60 cm . Distal abdominal aorta peak systolic velocity is 108.6 cm/sec . Procedures Technically Difficult exam due to gas and labored breathing. VL/Renal Artery Duplex Ultrasound Interpretation Summary Right renal artery patent with normal velocities and no evidence of stenosis. Left renal artery patent with normal velocities and no evidence of stenosis. Right renal vein patent Left renal vein patent Right kidney normal in size Left kidney with multiple cysts, small in size Unable to visualize proximal aorta due to bowel gas Ordering Physician: Andres Cortes Referring Physician: N/A Performed By: Vasquez Mcgill RVT
[2022-11-15] MEDS: Albuterol 2.5 MG/3 ML VIAL.NEB. INHALATION (07:33)
--- NOTE | 2022-11-15 07:36 | CPS ---
Pt c/o trouble breathing, started prn aerosol but pt refused. says he has had trouble with inhalers in the past.
--- NOTE | 2022-11-15 07:37 | CPS ---
Declined PEP and I.S. @this time.
--- NOTE | 2022-11-15 07:38 | PN.HOSP_ITS ---
Reason for Visit Reason for Visit: Diagnoses Hypertensive urgency (11/14/22) Unspecified atrial fibrillation (11/14/22) Other specified diseases of liver (11/14/22) Cyst of kidney, acquired (11/14/22) Hypoxemia (11/14/22) Subjective Subjective Follow-up for shortness of breath possible current diagnosis COPD exacerbation with abdominal pain Objective Data Objective Data Vital Signs: Vital Signs Temp Pulse Resp BP Pulse Ox O2 Del Method O2 Flow Rate 97.8 F 85 24 H 144/65 H 93 Nasal Cannula 2 11/15/22 05:05 11/15/22 07:35 11/15/22 07:35 11/15/22 05:05 11/15/22 05:05 11/15/22 05:05 11/15/22 05:05 Oxygen Flow Rate (L/min) 2 Oxygen Delivery Method Nasal Cannula Weight: 173 lb 8.061 oz Body Mass Index (BMI) 24.2 Intake & Output: Intake and Output for Last 24 Hours 11/13/22 11/14/22 11/15/22 23:59 23:59 23:59 Intake Total 1050 / 1290 545 / 545 Output Total 350 / 350 Balance 1050 / 1290 195 / 195 Lab / Micro Data Result Diagrams: 11/15/22 03:04 11/15/22 03:04 Labs: Laboratory Results - last 24 hr 11/14/22 17:50: Urine Color Yellow, Urine Clarity Clear, Urine pH 6.5, Ur Specific [place] 1.010, Urine Protein 30 H, Urine Glucose (UA) Normal, Urine Ketones Negative, Urine Occult Blood Negative, Urine Nitrite Negative, Urine Bilirubin Negative, Urine Urobilinogen Normal, Ur Leukocyte Esterase Negative, Urine RBC 0 SEEN, Urine WBC 0 SEEN, Ur Squamous Epith Cells 0 SEEN, Urine Bacteria 0 SEEN, Urine Mucus 0 SEEN 11/14/22 17:55: WBC 11.5 H, RBC 4.51 L, Hgb 14.4, Hct 43.8, MCV 97.1 H, MCH 31.9, MCHC 32.9, RDW Std Deviation 48.1 H, RDW Coeff of Sixto 13.3, Plt Count 466 H, MPV 9.6, Immature Gran % (Auto) 0.400, Neut % (Auto) 73.4 H, Lymph % (Auto) 15.4 L, [place] % (Auto) 7.9, Eos % (Auto) 2.6, Baso % (Auto) 0.3, Absolute Neuts (auto) 8.5 H, Absolute Lymphs (auto) 1.78, Nucleated RBC % 0 11/14/22 17:55: Sodium 140, Potassium 4.1, Chloride 104, Carbon Dioxide 29.0, Anion Gap 7, BUN 13, Creatinine 1.08, Estim Creat Clear Calc 53.26, Est GFR (MDRD) Af Amer 84, Est GFR (MDRD) Non-Af 69, BUN/Creatinine Ratio 12.0, Glucose 106, Calcium 9.5, Total Bilirubin 0.60, Direct Bilirubin 0.19, AST 6 L, ALT 15 L , Alkaline Phosphatase 110, Troponin I High Sens 12, Total Protein 8.0, Albumin 3.7, Globulin 4.3 H, Lipase 66 L 11/14/22 17:55: B-Natriuretic Peptide 123.5 H 11/14/22 17:55: Magnesium 2.3, TSH 4.79 H 11/14/22 23:06: Troponin I High Sens 18 11/15/22 03:04: WBC 11.5 H, RBC 3.85 L, Hgb 12.3 L, Hct 37.8 L, MCV 98.2 H, MCH 31.9, MCHC 32.5, RDW Std Deviation 48.3 H, RDW Coeff of Sixto 13.5, Plt Count 369, MPV 9.3, Immature Gran % (Auto) 0.200, Neut % (Auto) 74.5 H, Lymph % (Auto) 14.3 L, [place] % (Auto) 8.4, Eos % (Auto) 2.3, Baso % (Auto) 0.3, Absolute Neuts (auto) 8.6 H, Absolute Lymphs (auto) 1.65, Nucleated RBC % 0 11/15/22 03:04: Sodium 140, Potassium 4.0, Chloride 106, Carbon Dioxide 28.0, Anion Gap 6, BUN 12, Creatinine 0.94, Estim Creat Clear Calc 61.19, Est GFR (MDRD) Af Amer 98, Est GFR (MDRD) Non-Af 81, BUN/Creatinine Ratio 12.8, Glucose 109 H, Calcium 8.2 L, Triglycerides 75, Cholesterol 122, LDL Cholesterol 70, VLDL Cholesterol 15, HDL Cholesterol 37 L 0212/23 03:04: Troponin I High Sens 17 11/15/22 03:04: Procalcitonin 0.07 Micro: Microbiology 11/15/22 01:11 Urine, Clean Catch Streptococcus pneumoniae Antigen (M - Final 11/14/22 23:10 Urine, Clean Catch Legionella Antigen - Final 11/14/22 21:03 Mucosa - Nose Influenza Types A,B Direct FA (RICARDA) - Final Radiography Diagnostic Testing: Radiology Impression Abdomen/Pelvis CT 11/14/22 17:32 IMPRESSION: 1. Dense right renal cyst may be hemorrhagic, which could explain right-sided pain. 2. Bilateral lung base infiltrates/chronic lung disease. Electronically Signed: Noé Olvera MD at 19:25 EST , Chest X-Ray 11/14/22 18:50 IMPRESSION: Left lung base atelectasis/infiltrate. Electronically Signed: Noé Olvera MD at 20:43 EST , Chest CTA 11/14/22 20:59 IMPRESSION: Findings suspicious for multifocal pulmonary infection. Normal CTA chest examination, without a demonstrated pulmonary embolism or arterial dissection. Electronically Signed: Noé Olvera MD at 22:29 EST , Physical Exam Narrative Patient was a chain smoker, about 3 packs daily for 30 years and then quit 40 years ago. Patient states he he was always short of breath for many years but got worse recently. Also complained of chest tightness intermittently sometimes on left side. Denies any prior history of heart and he states his heart is strong and does not have family history of DC. His family of a stroke and cancer. Patient also has chronic increased frequency urgency and incontinence and difficulty emptying bladder, and straining and obstructive symptoms. States sometimes dark urine but denies obvious bright red blood Physical exam: General: Fatigued, short of breath RADHA 24.2 kg/m? looks chronically sick HEENT: Atraumatic, PERRLA, EOMI, Normocephalic Oral: Mucosa dry. No Gingival or Mucosal Lesions/ Ulcerations Neck: Supple, No JVD, Negative Carotid Bruits Lungs: Air entry really diminished in bilateral lung bases. No obvious rhonchi or wheezing Cardiovascular: Irregular rate and rhythm, Normal S1, Normal S2, No murmurs Abdomen: bowel Sounds Present, Soft, Non-Distended. No palpable mass : Mild tenderness over right lumbar region on deep palpation No renal angle tenderness. No suprapubic tenderness. Extremities: No edema, Capillary Refill Less than 3 Seconds Skin: No rashes, No breakdown Musculoskeletal: No Tenderness to Palpation of Joints or Extremities Neurological: Cranial nerves II-XII grossly intact, DTR 2+/4 and Symmetrical Psych/Mental Status: Flat affect Assessment & Plan Assessment/Plan (1) Hypoxia: (2) Kidney cysts: (3) Liver cyst: (4) Hypertensive urgency: (5) Atrial fibrillation: PLAN: Plan 87-year-old male was admitted with came to ED for generalized malaise, generalized abdominal pain, no appetite, failure to thrive over the last 2 to 3 months patient. No fever or chills. Patient does not have a PCP and has not done lab testing PCU for syncope for many years. 1. Abdominal pain, etiology unclear probably due to right renal hemorrhagic cyst with irritative and obstructive symptoms possible BPH: Has been increasing for last [address] abdomen pelvis individually reviewed and shows dense right renal cyst, probably hemorrhagic.Ultrasound of kidneys ordered. Urology consulted. As per urologist, does not look like malignancy but may be complicated cyst with hemorrhagic cyst. Started on tamsulosin 0.4 mg daily. 2. Bilateral multiple scattered nodules possible atypical pneumonia complicated with hypoxia. Chronic lung disease, exact etiology unclear possible undiagnosed COPD exacerbation Oxygen saturation in the 70s of ambulation. Started on bronchodilator, IV Solu- Medrol, Mucinex, IV antibiotics Rocephin and Zithromax. Neurologist consult requested. CTA chest individually reviewed and shows scattered nodular bilateral densities with scattered tree-in-bud appearance. chronic lung disease. Negative for PE. Incentive spirometer ordered. Respiratory panel and COVID PCR ordered. 2D echo ordered Mildly elevated leukocytosis 3. Atrial fibrillation EKG showed atrial fibrillation. Of note patient does not follow-up with a do ctor so it is unclear how long he has been in A-fib. TSH 4.79. Free T3 ordered. Serum magnesium and potassium normal. Normal Patient is not a rapid ventricle response. No anticoagulation because of a possible hemorrhagic cyst of right kidney. 4. Hypertensive urgency: BP in triage was 216/112. Most recent 144/65. Systolic blood pressure more than 180 on presentation. Patient reported that he has a diagnosis of hypertension but does not take any medication. In fact he has no PCP and follows up with no provider. Arterial duplex ultrasound of kidneys ordered. Chest pain EKG with A-fib. Trend troponin. Daily aspirin ordered. Check lipid profile. 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 No previous records to compare with. With patient age anticipates CKD. Creatinine is normal. Trend BMP. DVT prophylaxis: SCDs ordered. Charges/Coding Visit Charges Inpatient E&M: 38490 Subs Hosp L3
[2022-11-15] MEDS: 0.9% Normal Saline 1,000 ML 100 ML IV (07:50)
[2022-11-15] MEDS: Ceftriaxone 1 GM/50 ML BAG IV ×2 (07:51→22:08)
[2022-11-15] MEDS: amLODIPine 5 MG Tablet PO (07:51)
[2022-11-15] MEDS: Aspirin 81 MG TAB.CHEW PO (07:55)
[2022-11-15] MEDS: 0.9% Saline Lock 10 ML Syringe IV ×2 (10:13→13:17)
--- NOTE | 2022-11-15 10:16 | CON.PCM.UR_ITS ---
Assessment & Plan Assessment/Plan (1) Kidney cysts: PLAN: Observation of the renal cyst does appear to be hemorrhagic cyst but does not look like a malignancy does not appear to enhance I would recommend we do an ultrasound of his kidneys to verify that this is a simple cyst or a complicated cyst with hemorrhagic cyst but not something acute would recommend observation. 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 As long as he tolerates this okay. HPI Consult Data Date of Consult: 11/15/22 HPI Narrative Reason for Consultation: Right renal mass and BPH with obstruction HPI Narrative: JOE RAMIREZ, is a 87 M who presents to the hospital mostly for lung problems and difficulty with breathing he had a CT scan done demonstrated what appeared to be a hemorrhagic mass in the lower pole of the right kidney but this does not look acute it looks chronic and also by my review it does not look like a malignancy this was explained to the patient but he does have memory problems and he was talking about his power of insurance attorney mostly. But again explained to the patient that this mass in the right lower pole of the kidney looks benign I see that an ultrasound is ordered which is appropriate. Also under his review of systems he does have frequent urination and BPH and obstructive urinary pattern can recommend we try some Flomax 0.4 mg to help him with his prostate problems. [facility] Medical History HTN (hypertension) Allergy/AdvReac Type Severity Reaction Status Date / Time No Known Allergies Allergy Verified 11/14/22 17:06 Family History Other CVA (cerebral vascular accident) Cancer Surgical History Hx of tonsillectomy Social History housing: house Smoking Status: Former smoker substance use type: does not use Medical Records Data Attestation: I reviewed the patient's medical records Lab / Micro Data Result Diagrams: 11/15/22 03:04 11/15/22 03:04 Labs: Laboratory Results - last 24 hr 11/14/22 17:50: Urine Color Yellow, Urine Clarity Clear, Urine pH 6.5, Ur Specific [place] 1.010, Urine Protein 30 H, Urine Glucose (UA) Normal, Urine Ketones Negative, Urine Occult Blood Negative, Urine Nitrite Negative, Urine Bilirubin Negative, Urine Urobilinogen Normal, Ur Leukocyte Esterase Negative, Urine RBC 0 SEEN, Urine WBC 0 SEEN, Ur Squamous Epith Cells 0 SEEN, Urine Bacteria 0 SEEN, Urine Mucus 0 SEEN 11/14/22 17:55: WBC 11.5 H, RBC 4.51 L, Hgb 14.4, Hct 43.8, MCV 97.1 H, MCH 31.9 , MCHC 32.9, RDW Std Deviation 48.1 H, RDW Coeff of Sixto 13.3, Plt Count 466 H, MPV 9.6, Immature Gran % (Auto) 0.400, Neut % (Auto) 73.4 H, Lymph % (Auto) 15.4 L, [place] % (Auto) 7.9, Eos % (Auto) 2.6, Baso % (Auto) 0.3, Absolute Neuts (auto) 8.5 H, Absolute Lymphs (auto) 1.78, Nucleated RBC % 0 11/14/22 17:55: Sodium 140, Potassium 4.1, Chloride 104, Carbon Dioxide 29.0, Anion Gap 7, BUN 13, Creatinine 1.08, Estim Creat Clear Calc 53.26, Est GFR (MDRD) Af Amer 84, Est GFR (MDRD) Non-Af 69, BUN/Creatinine Ratio 12.0, Glucose 106, Calcium 9.5, Total Bilirubin 0.60, Direct Bilirubin 0.19, AST 6 L, ALT 15 L , Alkaline Phosphatase 110, Troponin I High Sens 12, Total Protein 8.0, Albumin 3.7, Globulin 4.3 H, Lipase 66 L 11/14/22 17:55: B-Natriuretic Peptide 123.5 H 11/14/22 17:55: Magnesium 2.3, TSH 4.79 H 11/14/22 23:06: Troponin I High Sens 18 11/15/22 03:04: WBC 11.5 H, RBC 3.85 L, Hgb 12.3 L, Hct 37.8 L, MCV 98.2 H, MCH 31.9, MCHC 32.5, RDW Std Deviation 48.3 H, RDW Coeff of Sixto 13.5, Plt Count 369, MPV 9.3, Immature Gran % (Auto) 0.200, Neut % (Auto) 74.5 H, Lymph % (Auto) 14.3 L, [place] % (Auto) 8.4, Eos % (Auto) 2.3, Baso % (Auto) 0.3, Absolute Neuts (auto) 8.6 H, Absolute Lymphs (auto) 1.65, Nucleated RBC % 0 11/15/22 03:04: Sodium 140, Potassium 4.0, Chloride 106, Carbon Dioxide 28.0, Anion Gap 6, BUN 12, Creatinine 0.94, Estim Creat Clear Calc 61.19, Est GFR (MDRD) Af Amer 98, Est GFR (MDRD) Non-Af 81, BUN/Creatinine Ratio 12.8, Glucose 109 H, Calcium 8.2 L, Triglycerides 75, Cholesterol 122, LDL Cholesterol 70, VLDL Cholesterol 15, HDL Cholesterol 37 L 11/15/22 03:04: Troponin I High Sens 17 11/15/22 03:04: Procalcitonin 0.07 Micro: Microbiology 11/15/22 01:11 Urine, Clean Catch Streptococcus pneumoniae Antigen (M - Final 11/14/22 23:10 Urine, Clean Catch Legionella Antigen - Final 11/14/22 21:03 Mucosa - Nose Influenza Types A,B Direct FA (RICARDA) - Final Radiology Impression Abdomen/Pelvis CT 11/14/22 17:32 IMPRESSION: 1. Dense right renal cyst may be hemorrhagic, which could explain right-sided pain. 2. Bilateral lung base infiltrates/chronic lung disease. Electronically Signed: Noé Olvera MD at 19:25 EST , Chest X-Ray 11/14/22 18:50 IMPRESSION: Left lung base atelectasis/infiltrate. Electronically Signed: Noé Olvera MD at 20:43 EST , Chest CTA 11/14/22 20:59 IMPRESSION: Findings suspicious for multifocal pulmonary infection. Normal CTA chest examination, without a demonstrated pulmonary embolism or arterial dissection. Electronically Signed: Noé Olvera MD at 22:29 EST ,
--- NOTE | 2022-11-15 12:10 | CPS ---
Pt politely refused Respiratory Panel & covid PCR, also refusing aerosols. RN aware.
[2022-11-15] MEDS: Ensure Plus High Protein 120 ML LIQUID PO ×3 (13:16→22:09)
--- NOTE | 2022-11-15 17:10 | CON.PCM.CC_ITS ---
Assessment & Plan Assessment/Plan (1) Atrial fibrillation: PLAN: - His history of orthopnea, increasing leg edema recently, and new disc overy of atrial fibrillation suggest congestive heart failure with recent onset of hypoxemia, which may have happened, although his BNP is now near normal and not high enough to explain his severe hypoxemia and symptoms. However, I would recommend - controlling his blood pressure, atrial fibrillation and fluid status - obtain an echo and - have cardiology continue to follow him, with consideration for cardioversion. - He clearly needs to be on multiple new medications for these problems as an outpatient and has never been on them before. - Trial of diuresis - We will defer management to primary care and cardiology. (2) Pneumonitis: PLAN: The patient CT scan shows a centrilobular pattern and peribronchiolar inflammation, with relative sparing of the periphery and fissures, which has a very large differential diagnosis. It could include hematogenous spread of malignancy, infection including fungal, viral, and atypical bacteria such as nocardia Acinetobacter or Aspergillus. I recommend the following: - Sputum cultures for C&S, with extended incubation for fungus, Acinetobacter, and nocardia on special media. - Consider viruses such as CMV in this relatively immunocompromised gentleman -Await results of comprehensive respiratory PCR, including COVID. Influenza is negative this admission. - If the patient is unable to produce sputum, consider bronchoscopy with BAL, and send for the above cultures - His symptoms and presentation probably have a large cardiogenic component, see below. However, we need to carefully rule out an infectious etiology since he has been getting gradually worse. - After trial of diuresis, I like him to repeat a high definition noncontrast chest CT scan to look for cystic lung disease, because his initial CAT scan had significant motion artifact, and I was not able to distinguish possible pulmonary cysts from artifact, which would be interesting given his hepatic and renal cysts. (3) Hypertensive urgency: PLAN: Management per primary, patient has had uncontrolled severe hypertension for years (4) Acute respiratory failure with hypoxemia: PLAN: - Recheck chest x-ray in the a.m. - Titrate FiO2 to keep saturation greater than 92% due to his cardiac condition - He has a history of childhood severe asthma that he likely outgrew, and possible COPD from heavy smoking (60 pack years). However nebulizer treatments have not helped, and made him feel worse. - Recommend complete pulmonary function studies as soon as he is able to perform them. Hopefully when he is weaned off oxygen. PLAN: Plan In addition to the above, he has been failing at home, has been living independently, and case management and physical therapy should assess him for possible transfer to a skilled facility to rebuild his strength. He possibly could need skilled facility going forward, and is not likely to accept that idea. His CODE STATUS was reviewed today, he is DNI, DNR, CCA. His goal of hospitalization is to see if he can feel better, but does not want to undergo extensive painful treatment including surgery or dialysis if he should have medical indications for them. HPI Consult Data Date of Consult: 11/15/22 HPI Narrative Reason for Consultation: This 87-year-old man was admitted for worsening hypoxia and dyspnea. HPI Narrative: JOE RAMIREZ, is a 87 M who presents because of dyspnea to the emergency room where his O2 saturation was 70%. He was also found to be in atrial fibrillation and admitted for further management. He smoked 3 packs a day of Mariano strikes (unfiltered) cigarettes for 30 years, quit completely in his 40s. He has been gradually getting more short of breath, and since Thanksgiving its been worse, he has been gasping for breath at times, and has orthopnea, cannot lay flat because of dyspnea, has cough productive of yellowish sputum, no chest pain, does have abdominal pain. The day prior to admission, he complained of being very weak, very short of breath, unable to walk very far at home, with his worst symptoms being at night. He has had some confusion. He denies recent URI, hemoptysis, pneumonia, influenza, or COVID. He tried an inhaler and thought it made him worse.. His legs have been swelling more and bought some ELIEL hose to help with that. His blood pressure was over 198/80, and notably in July 2021 his blood pressure in the ER (for a fall) was 186 systolic. He has never been on antihypertensives. His BMI is 24. He has not had medical care in years. He had no primary care doctor. He lives in his own home independently, his nephew and power of privacy attorney lives nearby. His nephew was present during today's visit. He was not on medications, inhalers or oxygen in the past, occasionally taking [id number] medication. 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 His only other respiratory problem was pneumonia in rapid succession twice, 20 years ago, did not require hospitalization and returned to normal. He recalls having allergy test many years ago and was not sure of results. He has had immunizations for COVID and 1 flu shot according to him and his nephew. [facility] Medical History (Updated 11/15/22 @ 17:[address] Jaydon Casey MD) Acute respiratory failure with hypoxemia HTN (hypertension) Pneumonitis Allergy/AdvReac Type Severity Reaction Status Date / Time No Known Allergies Allergy Verified 11/14/22 17:06 Family History Other CVA (cerebral vascular accident) Cancer Surgical History Hx of tonsillectomy Social History housing: house Smoking Status: Former smoker substance use type: does not use Physical Exam Narrative Well-developed mildly confused pleasant elderly gentleman in mild to moderate respiratory distress. Unable to speak complete sentences at times due to dyspnea. Gurgling voice due to secretions. HEENT: No thrush, mucous membranes moist, neck is supple with no JVD thyromegaly or mass, Neck is supple with no emmanuel Chest: Diminished, hyperinflated, crackles in all lung cordero, some rhonchi present that raise with cough. No rub, no consolidation Heart irregularly irregular S1-S2 with no murmurs rubs or gallops s Abdomen is soft, mildly tender, mildly distended, with some air-filled loops of bowels palpable. Extremities have no clubbing cyanosis or edema, SCDs are in place. Patient states his edema is better since admission Neurologic exam is remarkable for fluctuating mental status, sometimes articulate speech sometimes not, nephew was present to help with his history. Grossly nonfocal, cranial nerves grossly intact Skin is warm and dry Medical Records Data Attestation: I reviewed the patient's medical records Lab / Micro Data Result Diagrams: 11/15/22 03:04 11/15/22 03:04 Labs: Laboratory Results - last 24 hr 11/14/22 17:50: Urine Color Yellow, Urine Clarity Clear, Urine pH 6.5, Ur Specific [place] 1.010, Urine Protein 30 H, Urine Glucose (UA) Normal, Urine Ketones Negative, Urine Occult Blood Negative, Urine Nitrite Negative, Urine Bilirubin Negative, Urine Urobilinogen Normal, Ur Leukocyte Esterase Negative, Urine RBC 0 SEEN, Urine WBC 0 SEEN, Ur Squamous Epith Cells 0 SEEN, Urine Bacteria 0 SEEN, Urine Mucus 0 SEEN 11/14/22 17:55: WBC 11.5 H, RBC 4.51 L, Hgb 14.4, Hct 43.8, MCV 97.1 H, MCH 31.9, MCHC 32.9, RDW Std Deviation 48.1 H, RDW Coeff of Sixto 13.3, Plt Count 466 H, MPV 9.6, Immature Gran % (Auto) 0.400, Neut % (Auto) 73.4 H, Lymph % (Auto) 15.4 L, [place] % (Auto) 7.9, Eos % (Auto) 2.6, Baso % (Auto) 0.3, Absolute Neuts (auto) 8.5 H, Absolute Lymphs (auto) 1.78, Nucleated RBC % 0 11/14/22 17:55: Sodium 140, Potassium 4.1, Chloride 104, Carbon Dioxide 29.0, Anion Gap 7, BUN 13, Creatinine 1.08, Estim Creat Clear Calc 53.26, Est GFR (MDRD) Af Amer 84, Est GFR (MDRD) Non-Af 69, BUN/Creatinine Ratio 12.0, Glucose 106, Calcium 9.5, Total Bilirubin 0.60, Direct Bilirubin 0.19, AST 6 L, ALT 15 L , Alkaline Phosphatase 110, Troponin I High Sens 12, Total Protein 8.0, Albumin 3.7, Globulin 4.3 H, Lipase 66 L 11/14/22 17:55: B-Natriuretic Peptide 123.5 H 11/14/22 17:55: Magnesium 2.3, TSH 4.79 H 11/14/22 23:06: Troponin I High Sens 18 11/15/22 03:04: WBC 11.5 H, RBC 3.85 L, Hgb 12.3 L, Hct 37.8 L, MCV 98.2 H, MCH 31.9, MCHC 32.5, RDW Std Deviation 48.3 H, RDW Coeff of Sixto 13.5, Plt Count 369, MPV 9.3, Immature Gran % (Auto) 0.200, Neut % (Auto) 74.5 H, Lymph % (Auto) 14.3 L, [place] % (Auto) 8.4, Eos % (Auto) 2.3, Baso % (Auto) 0.3, Absolute Neuts (auto) 8.6 H, Absolute Lymphs (auto) 1.65, Nucleated RBC % 0 11/15/22 03:04: Sodium 140, Potassium 4.0, Chloride 106, Carbon Dioxide 28.0, Anion Gap 6, BUN 12, Creatinine 0.94, Estim Creat Clear Calc 61.19, Est GFR (MDRD) Af Amer 98, Est GFR (MDRD) Non-Af 81, BUN/Creatinine Ratio 12.8, Glucose 109 H, Calcium 8.2 L, Triglycerides 75, Cholesterol 122, LDL Cholesterol 70, VLDL Cholesterol 15, HDL Cholesterol 37 L 11/15/22 03:04: Troponin I High Sens 17 11/15/22 03:04: Procalcitonin 0.07 Summary: BNP slightly elevated, white count slightly elevated with neutrophilia, glucose just above normal range. Strep and Legionella urine antigens negative, influenza a and B PCR negative COVID PCR pending My observation of the patient's CT scan, in addition to the below, shows a pattern of centrilobular and peribronchial inflammatory changes with relative sparing of the pleura and septae, distributed from the apex to the bases, with no pleural effusion. I agree this is infectious or inflammatory in nature, possibly by hematogenous spread. CTA Chest 11/14/22: COMPARISON:? Same day chest x-ray FINDINGS: Normal enhancement of the main pulmonary artery and right and left pulmonary arteries.? Normal enhancement of the bilateral peripheral pulmonary arteries.? There is no demonstrated pulmonary embolism. Normal thoracic aorta and visualized great vessels. There is no demonstrated aortic dissection. Normal heart and pericardium. Normal mediastinum.? Normal hilar regions. Normal visualized trachea and bronchi.? The lungs are well expanded. Scattered tree-in-bud and nodular densities in both lungs. Normal pleura. Normal chest wall structures. Normal thoracolumbar vertebral alignment. CT/CTA Chest W/WO Contrast IMPRESSION: Findings suspicious for multifocal pulmonary infection. Normal CTA chest examination, without a demonstrated pulmonary embolism or arterial dissection. ? Electronically Signed: Noé Olvera MD at 22:29 EST Micro: Microbiology 11/15/22 01:11 Urine, Clean Catch Streptococcus pneumoniae Antigen (M - Final 11/14/22 23:10 Urine, Clean Catch Legionella Antigen - Final 11/14/22 21:03 Mucosa - Nose Influenza Types A,B Direct FA (RICARDA) - Final Radiology Impression Abdomen/Pelvis CT 11/14/22 17:32 IMPRESSION: 1. Dense right renal cyst may be hemorrhagic, which could explain right-sided pain. 2. Bilateral lung base infiltrates/chronic lung disease. Electronically Signed: Noé Olvera MD at 19:25 EST Reading Location ID and State: [facility] / [place] Tel , Service support , Chest X-Ray 11/14/22 18:50 IMPRESSION: Left lung base atelectasis/infiltrate. Electronically Signed: Noé Olvera MD at 20:43 EST , Chest CTA 11/14/22 20:59 IMPRESSION: Findings suspicious for multifocal pulmonary infection. Normal CTA chest examination, without a demonstrated pulmonary embolism or arterial dissection. Electronically Signed: Noé Olvera MD at 22:29 EST ,
[2022-11-15] MEDS: Tamsulosin HCl 0.4 MG Capsule PO (18:26)
[2022-11-15] MEDS: guaiFENesin/D-Methorphan TAB.SR.12H 1 TABLET PO (22:08)
[2022-11-16 02:50] VITALS: BP 167/84; PULSE 68; RESP 18; TEMP 36.4; O2SAT 97
[2022-11-16 05:00] VITALS: BP 167/84; PULSE 68; RESP 18; TEMP 36.4; O2SAT 97
[2022-11-16 07:30] VITALS: O2SAT 92
--- NOTE | 2022-11-16 08:00 | US_ITS ---
STUDY: RENAL ULTRASOUND - COMPLETE REASON FOR EXAM: Male, 87 years old. History of renal cyst. TECHNIQUE: Ultrasound evaluation of the kidneys was performed with real-time and static kennedy-scale imaging. COMPARISON: Comparison is made with prior CT scan dated 11/14/2022. FINDINGS: RIGHT KIDNEY: Normal location of the right kidney, which is normal in size. The right kidney measures 12.2 cm x 5.8 cm x 6.7 cm. There is a normal cortex of the right kidney. The renal cortex measures 2.0 cm. There is a 4.5 cm x 3.7 cm x 3.4 cm solid heterogeneous nodule in the lower pole of the right kidney. A neoplastic process should be ruled out. . There are no right renal calculi. There is no right hydronephrosis. DISTAL RIGHT URETER: There is non-visualization of the distal right ureter. There is no demonstrated right ureterovesical junction calculus. There is a visualized right ureteral jet. LEFT KIDNEY: Normal location of the left kidney, which is normal in size. The left kidney measures 11.9 cm x 5.8 cm x 7.2 cm. There is a normal cortex of the left kidney. The renal cortex measures 1.7 cm. 2 cysts are seen in the lower pole. The larger cyst measures 5.9 cm x 5.1 cm x 3.9 cm. There are no left renal calculi. There is no left hydronephrosis. DISTAL LEFT URETER: There is non-visualization of the distal left ureter. There is no demonstrated left ureterovesical junction calculus. There is no demonstrated left ureteral jet. BLADDER: The distended urinary bladder has a volume of 196 ml. There is a normal wall thickness of the distended urinary bladder. There is no demonstrated mass within the urinary bladder. There are no demonstrated bladder calculi. US/Kidney and Bladder IMPRESSION: Heterogeneous nodule in the lower pole of the right kidney as described. A neoplastic process should BE ruled out. 2. Cysts are seen within the left kidney. Electronically Signed: Brady Lynn MD at 12:39 EST ,
[2022-11-16 09:30] VITALS: BP 180/70; PULSE 69; RESP 18; TEMP 36.7; O2SAT 92
--- NOTE | 2022-11-16 09:52 | PCM.PN.INT ---
Assessment & Plan Assessment/Plan (1) Hypertensive urgency: (2) Pneumonitis: PLAN: Plan RECOMMENDATIONS: 1. Await echocardiogram 2. Challenge with diuretics 3. Delirium protocol 4. Encourage incentive spirometer and out of bed as tolerated IMPRESSIONS: 1. Acute hypoxic respiratory insufficiency Unclear etiology. This does appear to be an atypical pattern. Patient is currently on steroids, antibiotics and mucolytic's. Viral work-up has been unremarkable at this time. Patient is not having fever or productive cough at this time. Patient does have a history of hypertensive urgency, A-fib and advanced age, so pulmonary edema would be a consideration. We will give patient diuretics. Patient would benefit from aggressive blood pressure control. Patient will need a walking oximetry prior to discharge. Encourage incentive spirometer and out of bed as tolerated. Patient will likely need a repeat CT scan in the future 2. A-fib/hypertensive urgency/possible CHF Patient's rate is relatively controlled at this time. However, patient with significant hypertension. Aggressive control of hypertension would be recommended. Patient does have preliminary secondary hypertension work-up ordered. 1 would expect some element of diastolic dysfunction given advanced age, but echocardiogram is currently pending. This would be exacerbated by RVR. Could consider cardioversion, but defer to cardiology. 3. CKD stage II/BPH/delirium/metabolic encephalopathy Complicates care, management, recovery and prognosis. Abdominal pain much improved at this time. Patient with some confusion overnight. This would be made worse by steroids, but patient is at high risk for obstructive lung disease and is requiring supplemental oxygen at this time. Patient would benefit from delirium protocol at this time. We will recheck labs tomorrow morning Subjective Subjective Patient did okay overnight from a hemodynamic standpoint. However, patient felt extremely confused and this scares me. Patient believes his breathing is somewhat improved compared to previous. Patient is not reporting any chest pain. Patient has not had a productive cough. Objective Data Objective Data Vital Signs: Vital Signs Temp Pulse Resp BP Pulse Ox O2 Del Method O2 Flow Rate 36.7 C 69 18 180/70 H 92 Room Air 3 11/16/22 09:30 11/16/22 09:30 11/16/22 09:30 11/16/22 09:30 11/16/22 09:30 11/16/22 09:30 11/16/22 09:30 Oxygen Flow Rate (L/min) 3 Oxygen Delivery Method Room Air Weight: 78.7 kg Body Mass Index (BMI) 24.2 Intake & Output: Intake and Output for Last 24 Hours 11/14/22 11/15/22 11/16/22 23:59 23:59 23:59 Intake Total 1050 / 1290 2455.00 / 2455.00 255 / 255 Output Total 1060 / 1060 350 / 350 Balance 1050 / 1290 1395.00 / 1395.00 -95 / -95 Lab / Micro Data Attestation: I reviewed the patient's lab results. Result Diagrams: 11/15/22 03:04 11/15/22 03:04 Labs: Laboratory Results - last 24 hr 11/15/22 15:35: COVID-19 (LU) Not Detected Micro: Microbiology 11/15/22 15:35 Mucosa - Nose Respiratory Panel (PCR) - Final 11/15/22 01:11 Urine, Clean Catch Streptococcus pneumoniae Antigen (M - Final 11/14/22 23:10 Urine, Clean Catch Legionella Antigen - Final 11/14/22 21:03 Mucosa - Nose Influenza Types A,B Direct FA (RICARDA) - Final Physical Exam Const alert Constitutional Narrative: Oriented x2. Anxious General Appearance: cooperative and well developed HEENT normocephalic, head/scalp atraumatic and moist oral mucous membranes Eyes PERRL and EOMs intact bilaterally Neck full ROM and no lymphadenopathy Resp normal respiratory effort and no use of accessory muscles Effort and Inspection: able to speak in complete sentences Auscultation: rales and diminished lung sounds; Negative for rhonchi or wheezes Percussion: Negative for dullness Cardio regular rate, S1 normal heart sound, S2 normal heart sound, no murmurs, no rub and no gallops Rhythm: abnormal rhythm irregularly irregular GI normal to inspection, nondistended, normoactive bowel sounds no CVA tenderness Extremity no clubbing, cyanosis or edema Skin no rashes or lesions noted Neuro oriented x3, CN's II-XII intact bilaterally, moves all extremities and no focal motor deficits Psych cooperative and affect normal Charges/Coding Visit Charges Inpatient E&M: 30218 Subs Hosp L2
[2022-11-16] MEDS: Losartan Potassium 25 MG Tablet 50 MG PO (09:53)
[2022-11-16] MEDS: Aspirin 81 MG TAB.CHEW PO (09:53)
[2022-11-16] MEDS: Ceftriaxone 1 GM/50 ML BAG IV ×2 (09:53→22:12)
[2022-11-16] MEDS: amLODIPine 5 MG Tablet PO (09:53)
[2022-11-16] MEDS: guaiFENesin/D-Methorphan TAB.SR.12H 1 TABLET PO ×2 (09:53→22:06)
[2022-11-16] MEDS: 0.9% Saline Lock 10 ML Syringe IV ×3 (09:54→22:06)
[2022-11-16] MEDS: Ensure Plus High Protein 120 ML LIQUID PO ×4 (09:55→22:12)
[2022-11-16] MEDS: Furosemide 20 MG/2 ML VIAL IV (11:07)
--- NOTE | 2022-11-16 12:16 | CHAPLAIN ---
Type of Pastoral Visit _x__ Initial Visit ___ Follow-up Visit ___ On-call Visit ___ General Patient Visit ___ Spiritual Assessment ___ Family Conference ___ Bereavement ___ Rapid Response ___ Code Blue ___ Other (describe below) Pastoral Care Referral From _x__ Patient ___ Family _x__ Nurse ___ Physician ___ Laminating Press Operator ___ Fire Safety Inspector ___ Other (describe below) Sacrament/Intervention _x__ Active listening ___ Anointing ___ Uatsdin ___ Bereavement ___ Communion _x__ Isabela exploration ___ _x__ Life review _x__ Prayer ___ Reconciliation ___ Sacrament of Sick _x__ Supportive presence ___ Wedding ___ Other (describe below) Pastoral Comments patient requested spiritual care support; pt gives lengthy life review and spiritual background; pt describes his situation and that he is recently and moved back to [place] from [place]; pt desires to have spiritual care and prayer for support;
--- NOTE | 2022-11-16 13:50 | CASEMGMT ---
TIMOTHY IBRAHIM Face to Face with patient for initial transition planning/care coordination assessment. RN CM introduced self and role at [facility]. Patient lying in bed, alert and oriented, girlfriend at bedside. Patient willing to participate in assessment and is able to answer all questions appropriately. Care providers, pharmacy, and demographics verified. Patient wishes to discharge home, will montior progress with therapy. Patient states he has no further needs or concerns at this time. CM to follow for discharge planning needs that may arise. PCP: No PCP, patient provided with PCP list to review with nephew his HPOA Specialists: none Preferred Pharmacy: [facility] Insurance: [facility] Prescription Benefit: none Living Will/HPOA: yes, nephew Cliff Hawkins LNOK: nephew Living Arrangements: Patient lives alone but girlfriend stays with him often. Patient lives in a single story apartment with no steps to enter. Patient states he is independent at home. Transportation: self, girlfriend DME/HHC: Patient has raised toilet, lift chair, walker, wheelchair at home. No previous HHC or SNF. Will monitor progress with therapy and need for home oxygen Disposition Plan: Patient to discharge home with family support and follow-up plans in place. Will monitor for home oxygen or therapy. Maribel FRANCO, RN, CM
[2022-11-16 14:51] VITALS: BP 156/63; PULSE 65; RESP 16; TEMP 36.7; O2SAT 95
--- NOTE | 2022-11-16 14:56 | PCM.PN.HOSP ---
Reason for Visit Reason for Visit: Diagnoses Hypertensive urgency (11/14/22) Unspecified atrial fibrillation (11/14/22) Pneumonia, unspecified organism (11/14/22) Acute respiratory failure with hypoxia (11/14/22) Other specified diseases of liver (11/14/22) Other obstructive and reflux uropathy (11/14/22) Cyst of kidney, acquired (11/14/22) Benign prostatic hyperplasia with lower urinary tract symptoms (11/14/22) Hypoxemia (11/14/22) Subjective Subjective Follow-up for severe shortness of breath with 60 pack years of smoking cigarettes. Objective Data Objective Data Vital Signs: Vital Signs Temp Pulse Resp BP Pulse Ox O2 Del Method O2 Flow Rate 98.0 F 65 16 156/63 H 95 Nasal Cannula 3.5 11/16/22 14:51 11/16/22 14:51 11/16/22 14:51 11/16/22 14:51 11/16/22 14:51 11/16/22 14:51 11/16/22 14:51 Oxygen Flow Rate (L/min) 3.5 Oxygen Delivery Method Nasal Cannula Weight: 173 lb 8.061 oz Body Mass Index (BMI) 24.2 Intake & Output: Intake and Output for Last 24 Hours 11/14/22 11/15/22 11/16/22 23:59 23:59 23:59 Intake Total 1050 / 1290 2455.00 / 2455.00 305 / 305 Output Total 1060 / 1060 350 / 350 Balance 1050 / 1290 1395.00 / 1395.00 -45 / -45 Lab / Micro Data Result Diagrams: 11/15/22 03:04 11/15/22 03:04 Labs: Laboratory Results - last 24 hr 11/15/22 15:35: COVID-19 (LU) Not Detected Micro: Microbiology 11/15/22 15:35 Mucosa - Nose Respiratory Panel (PCR) - Final 11/15/22 01:11 Urine, Clean Catch Streptococcus pneumoniae Antigen (M - Final 11/14/22 23:10 Urine, Clean Catch Legionella Antigen - Final 11/14/22 21:03 Mucosa - Nose Influenza Types A,B Direct FA ([facility]) - Final Radiography Diagnostic Testing: Radiology Impression Renal Ultrasound 11/16/22 08:00 IMPRESSION: Heterogeneous nodule in the lower pole of the right kidney as described. A neoplastic process should BE ruled out. 2. Cysts are seen within the left kidney. Electronically Signed: Brady Lynn MD at 12:39 EST , Physical Exam Narrative Patient is hard of hearing. States mild improvement in shortness of breath. Denies hematuria. Physical exam: General: Fatigued, short of breath RADHA 24.2 kg/m? looks chronically sick HEENT: Atraumatic, PERRLA, EOMI, Normocephalic Oral: Mucosa dry. No Gingival or Mucosal Lesions/ Ulcerations Neck: Supple, No JVD, Negative Carotid Bruits Lungs: Air entry severely and diffusely diminished in both lungs. No obvious rhonchi or wheezing Cardiovascular: Irregular rate and rhythm, Normal S1, Normal S2, No murmurs Abdomen: bowel Sounds Present, Soft, Non-Distended. No palpable mass : Mild tenderness over right lumbar region on deep palpation, slightly better. No renal angle tenderness. No suprapubic tenderness. Extremities: No edema, Capillary Refill Less than 3 Seconds Skin: No rashes, No breakdown Musculoskeletal: No Tenderness to Palpation of Joints or Extremities Neurological: Cranial nerves II-XII grossly intact, DTR 2+/4 and Symmetrical Psych/Mental Status: Flat affect Assessment & Plan Assessment/Plan (1) Hypoxia: (2) Kidney cysts: (3) Liver cyst: (4) Hypertensive urgency: (5) Atrial fibrillation: PLAN: Plan 87-year-old male was admitted with came to ED for generalized malaise, generalized abdominal pain, no appetite, failure to thrive over the last 2 to 3 months patient. No fever or chills. Patient does not have a PCP and has not done lab testing PCU for syncope for many years. 1. Abdominal pain, etiology unclear probably due to right renal hemorrhagic cyst with irritative and obstructive symptoms possible BPH: Has been increasing for last [address] abdomen pelvis individually reviewed and shows dense right renal cyst, probably hemorrhagic.Ultrasound of kidneys ordered. Urology consulted. As per urologist, does not look like malignancy but may be complicated cyst with hemorrhagic cyst. Started on tamsulosin 0.4 mg daily. 11/16: Discussed with the urologist Dr. Menjivar. Kidney ultrasound shows complicated, heterogenous, solid right renal cyst therefore suggestive of neoplasm. Dr. Menjivar suggested outpatient follow-up and patient is reluctant for invasive work-up or surgery. Abdominal pain is better. No hematuria noticed. 2. Bilateral multiple scattered nodules possible atypical pneumonia complicated with hypoxia. Chronic lung disease with shortness of breath for many years but acute worsening, exact etiology unclear possible undiagnosed COPD exacerbation Oxygen saturation in the 70s of ambulation. Started on bronchodilator, IV Solu-Medrol, Mucinex, IV antibiotics Rocephin and Zithromax. Patient was a chain smoker, about 3 packs daily for 30 years and then quit 40 years ago. CTA chest individually reviewed and shows scattered nodular bilateral densities with scattered tree-in-bud appearance. chronic lung disease. Negative for PE. Incentive spirometer ordered. Respiratory panel and COVID PCR ordered. Mildly elevated leukocytosis 11/16: Pulmonary consult suggested sputum culture but patient not having significant sputum for culture of fungus, atypical bacteria, nocardia or Acinetobacter. Need to follow-up in pulmonary clinic. Discussed with the database tester. Lasix 20 mg IV 1 dose ordered as diuretic challenge. 3. Atrial fibrillation EKG showed atrial fibrillation. Of note patient does not follow-up with a doctor so it is unclear how long he has been in A-fib. TSH 4.79. Free T4 ordered. Serum magnesium and potassium normal. Heart rate is controlled. No anticoagulation because of a possible hemorrhagic cyst of right kidney. 4. Hypertensive urgency: BP in triage was 216/112. Most recent 144/65. Systolic blood pressure more than 180 on presentation. Patient reported that he has a diagnosis of hypertension but does not take any medication. In fact he has no PCP and follows up with no provider. 5. Atypical chest pain: Patient denies history of coronary artery disease or other cardiac disease denies family history of [place]. His family of a stroke and cancer. 2D echo shows mild concentric LVH with EF 75%, PASP 44 mmHg suggestive of mild pulmonary hypertension. Serial troponins are negative. ACS ruled out. Fasting profile shows LDL 70, HDL 37. 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 No previous records to compare with. With patient age anticipates CKD. Creatinine is normal. Trend BMP. DVT prophylaxis: SCDs ordered. Total time of the visit including total time spent in counseling or coordination of care, (more than 50% of the total time, spent in obtaining medical information from nurses and other ancillary care providers,explaining to the patient about labs, imaging, diagnosis and management of active complex medical conditions), discussion with database tester, review of labs and imaging, clinical update to the patient's family's girlfriend near the bedside is 40 minutes. Clinical Impression(s) from Imaging Studies Abdomen/Pelvis CT 11/14/22 17:32 IMPRESSION: 1. Dense right renal cyst may be hemorrhagic, which could explain right-sided pain. 2. Bilateral lung base infiltrates/chronic lung disease. Electronically Signed: Noé Olvera MD at 19:25 EST , Chest X-Ray 11/14/22 18:50 IMPRESSION: Left lung base atelectasis/infiltrate. Electronically Signed: Noé Olvera MD at 20:43 EST Reading Location ID and State: [facility] / [place] Tel , Service support , Chest CTA 11/14/22 20:59 IMPRESSION: Findings suspicious for multifocal pulmonary infection. Normal CTA chest examination, without a demonstrated pulmonary embolism or arterial dissection. Electronically Signed: Noé Olvera MD at 22:29 EST , Echocardiogram 11/14/22 22:39 Interpretation Summary Normal LV size. Left ventricular systolic function is normal. The estimated ejection fraction is 75 %. Mild concentric left ventricular hypertrophy. Unable to assess diastolic dysfunction due to arrhythmia. Pulmonary artery systolic pressure is 44 mmHg. Mild to moderately dilated aortic root. Ordering Physician: Andres Cortes Performed By: Niya Mackey RDCS Renal Ultrasound 11/16/22 08:00 IMPRESSION: Heterogeneous nodule in the lower pole of the right kidney as described. A neoplastic process should BE ruled out. 2. Cysts are seen within the left kidney. Charges/Coding Visit Charges Inpatient E&M: 70186 Subs Hosp L3
[2022-11-16] MEDS: Tamsulosin HCl 0.4 MG Capsule PO (17:29)
[2022-11-16 22:04] VITALS: BP 144/65; PULSE 55; RESP 20; TEMP 36.7; O2SAT 94
[2022-11-17] VITALS (7 sets, daily range): BP systolic 141–171; BP diastolic 58–86; PULSE 65–80; RESP 16–18; TEMP 36.4–37.1; O2SAT 92–96
[2022-11-17 05:55] LABS: Absolute Lymphocyte Count 0.58 X10^3/uL (0.83-4.51); Absolute Neutrophil Count 15.4 X10^3/uL (2.0-7.7); Basophil# 0.01 X10^3/uL; Basophil% 0.1 % (0-1); Hematocrit 38.1 % (40-54); Hemoglobin 12.7 g/dL (13.0-16.5); Lymphocyte # 0.58 X10^3/ul (0.83-4.51); Lymphocyte % 3.5 % (19-41); Mean Corp Hgb Conc 33.3 g/dL (32-36); Mean Corpuscular Hgb 32.2 pg (27.0-32.0); Mean Corpuscular Volume 96.7 fL (80-94); Mean Platelet Vol. 9.7 fl (6.2-12.0); NRBC Flagged by Analyzer 0 % (0-5); Neutrophil # 15.44 X10^3/uL (2.7-7.7); Neutrophil % 92.9 % (47-70); POSITIVE DIFFERENTIAL YES; Platelet Count 419 K/mm3 (150-450); RBC Distribution Width CV 13.3 % (11.6-14.6); RBC Distribution Width SD 47.7 fl (35.1-43.9); Red Blood Count 3.94 M/mm3 (4.6-6.2); White Blood Count 16.6 K/mm3 (4.4-11.0)
[2022-11-17 05:58] LABS: Differential Indicated SCAN CRITERIA MET
[2022-11-17 06:21] LABS: Differential Comment SCANNED
[2022-11-17 06:37] LABS: Anion Gap 7 (5-15); BUN 34 mg/dL (7-18); BUN/Creat Ratio 29.3 RATIO (10-20); Chloride 101 mmol/L (98-107); Creatinine, Serum 1.16 mg/dL (0.70-1.30); EST Glomerular Filtration Rate 64 mL/min (>60); Est Glom Filt Rate - Afr Amer 77 mL/min (>60); Estimated Creatinine Clearance 49.59 ml/min; Glucose 144 mg/dL (74-106); Potassium 4.3 mmol/L (3.5-5.1); Sodium Level 138 mmol/L (136-145); T4 Free Direct 1.02 ng/dL (0.76-1.46)
[2022-11-17] MEDS: 0.9% Saline Lock 10 ML Syringe IV ×2 (06:42→20:53)
--- NOTE | 2022-11-17 08:23 | PN.CC_ITS ---
Assessment & Plan Assessment/Plan (1) Hypertensive urgency: (2) Pneumonitis: PLAN: Plan RECOMMENDATIONS: 1. Possibly wean steroids tomorrow if continues to improve 2. Challenge with diuretics 3. Delirium protocol 4. Encourage incentive spirometer and out of bed as tolerated IMPRESSIONS: 1. Acute hypoxic respiratory insufficiency Unclear etiology. This does appear to be an atypical pattern. Patient is currently on steroids, antibiotics and mucolytics. Viral work-up has been unremarkable at this time. Patient is not having fever or productive cough at this time. Patient does have a history of hypertensive urgency, A-fib and advanced age, so pulmonary edema would be a consideration. We will give patient diuretics. Patient would benefit from aggressive blood pressure control. Patient will need a walking oximetry prior to discharge. Encourage incentive spirometer and out of bed as tolerated. Patient will likely need a repeat CT scan in the future to document resolution 2. A-fib/hypertensive urgency/acute diastolic CHF Patient's rate is relatively controlled at this time. However, patient with significant hypertension on presentation. Aggressive control of hypert ension would be recommended. Patient does have preliminary secondary hypertension work-up ordered. Clinical suspicion for diastolic CHF with type II pulmonary hypertension. This would be exacerbated by RVR. Could consider cardioversion, but defer to cardiology. We will proceed with diuretics. Clinical suspicion is patient will require oxygen with ambulation and discharge 3. CKD stage II/BPH/delirium/metabolic encephalopathy Complicates care, management, recovery and prognosis. Abdominal pain much improved at this time. Patient with some confusion overnight. This would be made worse by steroids, but patient is at high risk for obstructive lung disease and is requiring supplemental oxygen at this time. Patient would benefit from delirium protocol at this time. We will recheck labs tomorrow morning Subjective Subjective Patient did well overnight. Patient states his mentation is much improved compared to yesterday. Patient was documented on being on room air for a period of time, but patient is not aware of the oxygen being removed. Patient is not reporting any chest pain or abdominal pain. Objective Data Objective Data Patient much more interactive today Vital Signs: Vital Signs Temp Pulse Resp BP Pulse Ox O2 Del Method O2 Flow Rate 36.6 C 70 18 159/70 H 96 Room Air 3.5 11/17/22 05:00 11/17/22 05:00 11/17/22 05:00 11/17/22 05:00 11/17/22 05:00 11/17/22 05:00 11/17/22 04:00 Oxygen Flow Rate (L/min) 3.5 Oxygen Delivery Method Room Air Weight: 78.7 kg Body Mass Index (BMI) 24.2 Intake & Output: Intake and Output for Last 24 Hours 11/15/22 11/16/22 11/17/22 23:59 23:59 23:59 Intake Total 2455.00 / 2455.00 610 / 610 Output Total 1060 / 1060 775 / 1175 800 / 800 Balance 1395.00 / 1395.00 -165 / -565 -800 / -800 Lab / Micro Data Result Diagrams: 11/17/22 05:33 11/17/22 05:33 Labs: Laboratory Results - last 24 hr 11/17/22 05:33: WBC 16.6 H, RBC 3.94 L, Hgb 12.7 L, Hct 38.1 L, MCV 96.7 H, MCH 32.2 H, MCHC 33.3, RDW Std Deviation 47.7 H, RDW Coeff of Sixto 13.3, Plt Count 419, MPV 9.7, Immature Gran % (Auto) 0.500, Neut % (Auto) 92.9 H, Lymph % (Auto) 3.5 L, [place] % (Auto) 3.0, Eos % (Auto) 0.0, Baso % (Auto) 0.1, Absolute Neuts (auto) 15.4 H, Absolute Lymphs (auto) 0.58 L, Nucleated RBC % 0, Differential Comment SCANNED 11/17/22 05:33: Sodium 138, Potassium 4.3, Chloride 101, Carbon Dioxide 30.0, Anion Gap 7, BUN 34 H, Creatinine 1.16, Estim Creat Clear Calc 49.59, Est GFR (MDRD) Af Amer 77, Est GFR (MDRD) Non-Af 64, BUN/Creatinine Ratio 29.3 H, Glucos e 144 H, Calcium 9.0, Free T4 1.02 Micro: Microbiology 11/15/22 15:35 Mucosa - Nose Respiratory Panel (PCR) - Final 11/15/22 01:11 Urine, Clean Catch Streptococcus pneumoniae Antigen (M - Final 11/14/22 23:10 Urine, Clean Catch Legionella Antigen - Final 11/14/22 21:03 Mucosa - Nose Influenza Types A,B Direct FA ([facility]) - Final Radiography Diagnostic Testing: Radiology Impression Echocardiogram 11/14/22 22:39 Interpretation Summary Normal LV size. Left ventricular systolic function is normal. The estimated ejection fraction is 75 %. Mild concentric left ventricular hypertrophy. Unable to assess diastolic dysfunction due to arrhythmia. Pulmonary artery systolic pressure is 44 mmHg. Mild to moderately dilated aortic root. Ordering Physician: Andres Cortes Performed By: Niya Mackey RDCS Renal Artery Duplex 11/15/22 05:55 Interpretation Summary Right renal artery patent with normal velocities and no evidence of stenosis. Left renal artery patent with normal velocities and no evidence of stenosis. Right renal vein patent Left renal vein patent Right kidney normal in size Left kidney with multiple cysts, small in size Unable to visualize proximal aorta due to bowel gas Ordering Physician: Andres Cortes Referring Physician: N/A Performed By: Vasquez Mcgill, RVT Renal Ultrasound 11/16/22 08:00 IMPRESSION: Heterogeneous nodule in the lower pole of the right kidney as described. A neoplastic process should BE ruled out. 2. Cysts are seen within the left kidney. Electronically Signed: Brady Lynn MD at 12:39 EST , Physical Exam Narrative Interacting appropriately. Patient asking to get out of bed Const alert Constitutional Narrative: Oriented x3. Much less anxious today General Appearance: cooperative and well developed HEENT normocephalic, head/scalp atraumatic and moist oral mucous membranes Eyes PERRL and EOMs intact bilaterally Neck full ROM and no lymphadenopathy Resp normal respiratory effort and no use of accessory muscles Effort and Inspection: able to speak in complete sentences Auscultation: rales diffuse (Improving) and diminished lung sounds; Negative for rhonchi or wheezes Percussion: Negative for dullness Cardio regular rate, S1 normal heart sound, S2 normal heart sound, no murmurs, no rub and no gallops Rhythm: abnormal rhythm irregularly irregular GI normal to inspection, nondistended, normoactive bowel sounds no CVA tenderness Extremity no clubbing, cyanosis or edema Skin no rashes or lesions noted Neuro oriented x3, CN's II-XII intact bilaterally, moves all extremities and no focal motor deficits Psych cooperative and affect normal Charges/Coding Visit Charges Inpatient E&M: 01441 Subs Hosp L2
[2022-11-17] MEDS: Ceftriaxone 1 GM/50 ML BAG IV ×2 (10:40→20:53)
[2022-11-17] MEDS: Losartan Potassium 25 MG Tablet 50 MG PO (10:45)
[2022-11-17] MEDS: guaiFENesin/D-Methorphan TAB.SR.12H 1 TABLET PO ×2 (10:45→20:53)
[2022-11-17] MEDS: amLODIPine 5 MG Tablet PO (10:45)
[2022-11-17] MEDS: Aspirin 81 MG TAB.CHEW PO (10:45)
[2022-11-17] MEDS: Furosemide 20 MG/2 ML VIAL IV ×2 (10:45→17:30)
[2022-11-17] MEDS: Ensure Plus High Protein 120 ML LIQUID PO ×4 (10:46→20:53)
--- NOTE | 2022-11-17 14:42 | PCM.PN.HOSP ---
Reason for Visit Reason for Visit: Diagnoses Hypertensive urgency (11/14/22) Unspecified atrial fibrillation (11/14/22) Pneumonia, unspecified organism (11/14/22) Acute respiratory failure with hypoxia (11/14/22) Other specified diseases of liver (11/14/22) Other obstructive and reflux uropathy (11/14/22) Cyst of kidney, acquired (11/14/22) Benign prostatic hyperplasia with lower urinary tract symptoms (11/14/22) Hypoxemia (11/14/22) Subjective Subjective Follow-up for shortness of breath, possible undiagnosed chronic interstitial lung disease, COPD exacerbation. Objective Data Objective Data Vital Signs: Vital Signs Temp Pulse Resp BP Pulse Ox O2 Del Method O2 Flow Rate 98.5 F 80 16 162/66 H 93 Nasal Cannula 2 11/17/22 10:37 11/17/22 10:37 11/17/22 10:37 11/17/22 10:37 11/17/22 10:37 11/17/22 10:37 11/17/22 10:37 Oxygen Flow Rate (L/min) 2 Oxygen Delivery Method Nasal Cannula Weight: 173 lb 8.061 oz Body Mass Index (BMI) 24.2 Intake & Output: Intake and Output for Last 24 Hours 11/15/22 11/16/22 11/17/22 23:59 23:59 23:59 Intake Total 2455.00 / 2455.00 610 / 610 Output Total 1060 / 1060 775 / 1175 800 / 800 Balance 1395.00 / 1395.00 -165 / -565 -800 / -800 Lab / Micro Data Result Diagrams: 11/17/22 05:33 11/17/22 05:33 Labs: Laboratory Results - last 24 hr 11/17/22 05:33: WBC 16.6 H, RBC 3.94 L, Hgb 12.7 L, Hct 38.1 L, MCV 96.7 H, MCH 32.2 H, MCHC 33.3, RDW Std Deviation 47.7 H, RDW Coeff of Sixto 13.3, Plt Count 419, MPV 9.7, Immature Gran % (Auto) 0.500, Neut % (Auto) 92.9 H, Lymph % (Auto) 3.5 L, [place] % (Auto) 3.0, Eos % (Auto) 0.0, Baso % (Auto) 0.1, Absolute Neuts (auto) 15.4 H, Absolute Lymphs (auto) 0.58 L, Nucleated RBC % 0, Differential Comment SCANNED 11/17/22 05:33: Sodium 138, Potassium 4.3, Chloride 101, Carbon Dioxide 30.0, Anion Gap 7, BUN 34 H, Creatinine 1.16, Estim Creat Clear Calc 49.59, Est GFR (MDRD) Af Amer 77, Est GFR (MDRD) Non-Af 64, BUN/Creatinine Ratio 29.3 H, Glucose 144 H, Calcium 9.0, Free T4 1.02 Micro: Microbiology 11/15/22 15:35 Mucosa - Nose Respiratory Panel (PCR) - Final 11/15/22 01:11 Urine, Clean Catch Streptococcus pneumoniae Antigen (M - Final 11/14/22 23:10 Urine, Clean Catch Legionella Antigen - Final 11/14/22 21:03 Mucosa - Nose Influenza Types A,B Direct FA (RICARDA) - Final Radiography Diagnostic Testing: Radiology Impression Echocardiogram 11/14/22 22:39 Interpretation Summary Normal LV size. Left ventricular systolic function is normal. The estimated ejection fraction is 75 %. Mild concentric left ventricular hypertrophy. Unable to assess diastolic dysfunction due to arrhythmia. Pulmonary artery systolic pressure is 44 mmHg. Mild to moderately dilated aortic root. Ordering Physician: Andres Cortes Performed By: Niya Mackey RDCS Renal Artery Duplex 11/15/22 05:55 Interpretation Summary Right renal artery patent with normal velocities and no evidence of stenosis. Left renal artery patent with normal velocities and no evidence of stenosis. Right renal vein patent Left renal vein patent Right kidney normal in size Left kidney with multiple cysts, small in size Unable to visualize proximal aorta due to bowel gas Ordering Physician: Andres Cortes Referring Physician: N/A Performed By: Vasquez Mcgill, RVT Physical Exam Narrative Patient is hard of hearing. States mild improvement in shortness of breath. Denies hematuria. Patient was confused and disoriented yesterday but he has much improved today. Physical exam: General: Fatigued, short of breath RADHA 24.2 kg/m? looks chronically sick HEENT: Atraumatic, PERRLA, EOMI, Normocephalic Oral: Mucosa moist. No Gingival or Mucosal Lesions/ Ulcerations Neck: Supple, No JVD, Negative Carotid Bruits Lungs: Air entry severely and diffusely diminished in both lungs. No obvious rhonchi or wheezing Cardiovascular: Irregular rate and rhythm, Normal S1, Normal S2, No murmurs Abdomen: bowel Sounds Present, Soft, Non-Distended. No palpable mass : Mild tenderness over right lumbar region on deep palpation, slightly better. No renal angle tenderness. No suprapubic tenderness. Extremities: No edema, Capillary Refill Less than 3 Seconds Skin: No rashes, No breakdown Musculoskeletal: No Tenderness to Palpation of Joints or Extremities Neurological: Cranial nerves II-XII grossly intact, DTR 2+/4 and Symmetrical Psych/Mental Status: Flat affect. Delirium resolved. Assessment & Plan Assessment/Plan (1) Hypoxia: (2) Kidney cysts: (3) Liver cyst: (4) Hypertensive urgency: (5) Atrial fibrillation: PLAN: Plan 87-year-old male was admitted with came to ED for generalized malaise, generalized abdominal pain, no appetite, failure to thrive over the last 2 to 3 months patient. No fever or chills. Patient does not have a PCP and has not done lab testing PCU for syncope for many years. 1. Abdominal pain, etiology unclear probably due to right renal hemorrhagic cyst with irritative and obstructive symptoms possible BPH: Has been increasing for last [address] abdomen pelvis individually reviewed and shows dense right renal cyst, probably hemorrhagic.Ultrasound of kidneys ordered. Urology consulted. As per urologist, does not look like malignancy but may be complicated cyst with hemorrhagic cyst. Started on tamsulosin 0.4 mg daily. 11/16: Discussed with the urologist Dr. Menjivar. Kidney ultrasound shows complicated, heterogenous, solid right renal cyst therefore suggestive of neoplasm. Dr. Menjivar suggested outpatient follow-up and patient is reluctant for invasive work-up or surgery. Abdominal pain is better. No hematuria noticed. 11/17: Patient stated he does not want operative treatment for solid neoplasm with suspicion of cancer. I urged him to follow with Dr. Menjivar. 2. Bilateral multiple scattered nodules possible atypical pneumonia complicated with hypoxia. Chronic lung disease with shortness of breath for many years but acute worsening, exact etiology unclear possible undiagnosed COPD exacerbation Oxygen saturation in the 70s of ambulation. Started on bronchodilator, IV Solu-Medrol, Mucinex, IV antibiotics Rocephin and Zithromax. Patient was a chain smoker, about 3 packs daily for 30 years and then quit 40 years ago. CTA chest individually reviewed and shows scattered nodular bilateral densities with scattered tree-in-bud appearance. chronic lung disease. Negative for PE. Incentive spirometer ordered. Respiratory panel and COVID PCR ordered. Mildly elevated leukocytosis 11/16: Pulmonary consult suggested sputum culture but patient not having significant sputum for culture of fungus, atypical bacteria, nocardia or Acinetobacter. Need to follow-up in pulmonary clinic. Discussed with the audio visual collections coordinator. Lasix 20 mg IV 1 dose ordered as diuretic challenge. 11/17: Pulmonary follow-up reviewed. Patient on 2 L of oxygen. Shortness of breath is better. wean off steroid from tomorrow morning. Intermittent diuretic on a daily basis monitoring. Continue incentive spirometry. 3. Atrial fibrillation EKG showed atrial fibrillation. Of note patient does not follow-up with a doctor so it is unclear how long he has been in A-fib. TSH 4.79. Free T4 ordered. Serum magnesium and potassium normal. Heart rate is controlled. No anticoagulation because of a possible hemorrhagic cyst of right kidney. Heart rate is controlled. 4. Hypertensive urgency: BP in triage was 216/112. Most recent 144/65. Systolic blood pressure more than 180 on presentation. Patient reported that he has a diagnosis of hypertension but does not take any medication. In fact he has no PCP and follows up with no provider. 11/17: Blood pressure 162/66.Continue losartan 50 mg daily. 5. Atypical chest pain: Patient denies history of coronary artery disease or other cardiac disease denies family history of [place]. His family of a stroke and cancer. 2D echo shows mild concentric LVH with EF 75%, PASP 44 mmHg suggestive of mild pulmonary hypertension. Serial troponins are negative. ACS ruled out. Fasting profile shows LDL 70, HDL 37. 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 No previous records to compare with. With patient age anticipates CKD. Creatinine is normal. Trend BMP. DVT prophylaxis: SCDs ordered. Total time of the visit including total time spent in counseling or coordination of care, (more than 50% of the total time, spent in obtaining medical information from nurses and other ancillary care providers,explaining to the patient about labs, imaging, diagnosis and management of active complex medical conditions), discussion with audio visual collections coordinator, review of labs and imaging, clinical update to the patient's family's girlfriend near the bedside is 40 minutes. Clinical Impression(s) from Imaging Studies Abdomen/Pelvis CT 11/14/22 17:32 IMPRESSION: 1. Dense right renal cyst may be hemorrhagic, which could explain right-sided pain. 2. Bilateral lung base infiltrates/chronic lung disease. Electronically Signed: Noé Olvera MD at 19:25 EST Reading Location ID and State: [facility] / [place] Tel , Service support , Chest X-Ray 11/14/22 18:50 IMPRESSION: Left lung base atelectasis/infiltrate. Electronically Signed: Noé Olvera MD at 20:43 EST , Chest CTA 11/14/22 20:59 IMPRESSION: Findings suspicious for multifocal pulmonary infection. Normal CTA chest examination, without a demonstrated pulmonary embolism or arterial dissection. Electronically Signed: Noé Olvera MD at 22:29 EST , Echocardiogram 11/14/22 22:39 Interpretation Summary Normal LV size. Left ventricular systolic function is normal. The estimated ejection fraction is 75 %. Mild concentric left ventricular hypertrophy. Unable to assess diastolic dysfunction due to arrhythmia. Pulmonary artery systolic pressure is 44 mmHg. Mild to moderately dilated aortic root. Ordering Physician: Andres Cortes Performed By: Niya Mackey RDCS Renal Ultrasound 11/16/22 08:00 IMPRESSION: Heterogeneous nodule in the lower pole of the right kidney as described. A neoplastic process should BE ruled out. 2. Cysts are seen within the left kidney. Charges/Coding Visit Charges Inpatient E&M: 63177 Subs Hosp L2
[2022-11-17] MEDS: Tamsulosin HCl 0.4 MG Capsule PO (17:30)
[2022-11-18] VITALS (9 sets, daily range): BP systolic 136–175; BP diastolic 63–76; PULSE 59–87; RESP 16–19; TEMP 36.4–36.6; O2SAT 91–95
[2022-11-18] MEDS: 0.9% Saline Lock 10 ML Syringe IV (05:11)
[2022-11-18 05:37] LABS: Absolute Lymphocyte Count 0.57 X10^3/uL (0.83-4.51); Absolute Neutrophil Count 12.5 X10^3/uL (2.0-7.7); Basophil# 0.01 X10^3/uL; Basophil% 0.1 % (0-1); Hematocrit 39.2 % (40-54); Hemoglobin 13.2 g/dL (13.0-16.5); Lymphocyte # 0.57 X10^3/ul (0.83-4.51); Lymphocyte % 4.2 % (19-41); Mean Corp Hgb Conc 33.7 g/dL (32-36); Mean Corpuscular Hgb 32.3 pg (27.0-32.0); Mean Corpuscular Volume 95.8 fL (80-94); Mean Platelet Vol. 10.1 fl (6.2-12.0); Monocyte# 0.44 X10^3/uL; Monocyte% 3.2 % (0-10); NRBC Flagged by Analyzer 0 % (0-5); Neutrophil # 12.53 X10^3/uL (2.7-7.7); POSITIVE DIFFERENTIAL YES; Platelet Count 428 K/mm3 (150-450); RBC Distribution Width CV 13.2 % (11.6-14.6); RBC Distribution Width SD 46.8 fl (35.1-43.9); Red Blood Count 4.09 M/mm3 (4.6-6.2); White Blood Count 13.6 K/mm3 (4.4-11.0)
[2022-11-18 05:56] LABS: Differential Indicated SCAN CRITERIA MET
[2022-11-18 06:09] LABS: Anion Gap 7 (5-15); BUN 49 mg/dL (7-18); BUN/Creat Ratio 40.8 RATIO (10-20); Calcium,Total 8.9 mg/dL (8.5-10.1); Chloride 101 mmol/L (98-107); EST Glomerular Filtration Rate 61 mL/min (>60); Est Glom Filt Rate - Afr Amer 74 mL/min (>60); Estimated Creatinine Clearance 47.93 ml/min; Glucose 134 mg/dL (74-106); Potassium 4.2 mmol/L (3.5-5.1); Sodium Level 138 mmol/L (136-145)
[2022-11-18 06:52] LABS: Differential Comment SCANNED
[2022-11-18] MEDS: Losartan Potassium 25 MG Tablet 50 MG PO (08:49)
[2022-11-18] MEDS: amLODIPine 5 MG Tablet PO (08:49)
[2022-11-18] MEDS: Aspirin 81 MG TAB.CHEW PO (08:49)
[2022-11-18] MEDS: Ensure Plus High Protein 120 ML LIQUID PO ×4 (08:49→22:19)
[2022-11-18] MEDS: guaiFENesin/D-Methorphan TAB.SR.12H 1 TABLET PO ×2 (08:50→22:15)
--- NOTE | 2022-11-18 09:15 | CASEMGMT ---
Physician notified SW that patient is requesting to go to a senior living. Therapy has not been ordered as patient has been a stand-by assist. SW made sure and order for PT/OT was placed in computer. Jacquelyn GALLO
[2022-11-18] MEDS: Ceftriaxone 1 GM/50 ML BAG IV ×2 (09:54→22:15)
--- NOTE | 2022-11-18 10:00 | PCM.PN.INT ---
Assessment & Plan Assessment/Plan (1) Hypertensive urgency: (2) Pneumonitis: PLAN: Plan RECOMMENDATIONS: 1. Okay to transition to prednisone and wean over the next 12 days 2. Challenge with diuretics as tolerated 3. Okay to go to [facility] from my perspective 4. Encourage incentive spirometer and out of bed as tolerated 5. Hemodynamically stable on minimal nasal cannula oxygen for over 48 hours. Will sign off from a pulmonary perspective IMPRESSIONS: 1. Acute hypoxic respiratory insufficiency Unclear etiology. This does appear to be an atypical pattern. Patient is currently on steroids, antibiotics and mucolytics. Viral work-up has been unremarkable at this time. Patient is not having fever or productive cough at this time. Patient does have a history of hypertensive urgency, A-fib and advanced age, so pulmonary edema would be a consideration. Patient responded well to diuretics. Patient would benefit from aggressive blood pressure control. Patient will need a walking oximetry prior to discharge. Encourage incentive spirometer and out of bed as tolerated. Patient will likely need a repeat CT scan in the future to document resolution in 6 to 8 weeks. Patient can follow-up with nurse practitioner 2 weeks after discharge to arrange follow-up imaging 2. A-fib/hypertensive urgency/acute diastolic CHF Patient's rate is relatively controlled at this time. However, patient with significant hypertension on presentation. Aggressive control of hypertension would be recommended. Patient does have preliminary secondary hypertension work-up ordered. Clinical suspicion for diastolic CHF with type II pulmonary hypertension. This would be exacerbated by RVR. Could consider cardioversion, but defer to cardiology. We will proceed with diuretics as tolerated. Clinical suspicion is patient will require oxygen with ambulation and discharge 3. CKD stage II/BPH/delirium/metabolic encephalopathy Complicates care, management, recovery and prognosis. Abdominal pain much improved at this time. Patient with some confusion overnight. This would be made worse by steroids, but patient is at high risk for obstructive lung disease and is requiring supplemental oxygen at this time. Patient would benefit from delirium protocol at this time. Subjective Subjective Patient did well overnight. Patient is still requiring supplemental oxygen to maintain saturations. Patient did voice concerns that he would not be able to care for himself at home independently. Hospitalist has been made aware. Objective Data Objective Data Vital Signs: Vital Signs Temp Pulse Resp BP Pulse Ox O2 Del Method O2 Flow Rate 36.6 C 68 18 175/76 H 94 Nasal Cannula 2 11/18/22 08:00 11/18/22 08:00 11/18/22 08:00 11/18/22 08:00 11/18/22 08:00 11/18/22 08:00 11/18/22 08:00 Oxygen Flow Rate (L/min) 2 Oxygen Delivery Method Nasal Cannula Weight: 78.7 kg Body Mass Index (BMI) 24.2 Intake & Output: Intake and Output for Last 24 Hours 11/16/22 11/17/22 11/18/22 23:59 23:59 23:59 Intake Total 610 / 610 475 / 475 Output Total 775 / 1175 1525 / 1925 650 / 650 Balance -165 / -565 -1050 / -1450 -650 / -650 Lab / Micro Data Attestation: I reviewed the patient's lab results. Result Diagrams: 11/18/22 04:16 11/18/22 04:16 Labs: Laboratory Results - last 24 hr 11/18/22 04:16: WBC 13.6 H, RBC 4.09 L, Hgb 13.2, Hct 39.2 L, MCV 95.8 H, MCH 32.3 H, MCHC 33.7, RDW Std Deviation 46.8 H, RDW Coeff of Sixto 13.2, Plt Count 428, MPV 10.1, Immature Gran % (Auto) 0.500, Neut % (Auto) 92.0 H, Lymph % (Auto) 4.2 L, [place] % (Auto) 3.2, Eos % (Auto) 0.0, Baso % (Auto) 0.1, Absolute Neuts (auto) 12.5 H, Absolute Lymphs (auto) 0.57 L, Nucleated RBC % 0, Differential Comment SCANNED 11/18/22 04:16: Sodium 138, Potassium 4.2, Chloride 101, Carbon Dioxide 30.0, Anion Gap 7, BUN 49 H, Creatinine 1.20, Estim Creat Clear Calc 47.93, Est GFR (MDRD) Af Amer 74, Est GFR (MDRD) Non-Af 61, BUN/Creatinine Ratio 40.8 H, Glucose 134 H, Calcium 8.9 Micro: Microbiology 11/15/22 15:35 Mucosa - Nose Respiratory Panel (PCR) - Final 11/15/22 01:11 Urine, Clean Catch Streptococcus pneumoniae Antigen (M - Final 11/14/22 23:10 Urine, Clean Catch Legionella Antigen - Final 11/14/22 21:03 Mucosa - Nose Influenza Types A,B Direct FA (RICARDA) - Final Physical Exam Narrative Interacting appropriately. Patient asking to get out of bed Const alert Constitutional Narrative: Oriented x3. No anxiety today. General Appearance: cooperative and well developed HEENT normocephalic, head/scalp atraumatic and moist oral mucous membranes Eyes PERRL and EOMs intact bilaterally Neck full ROM and no lymphadenopathy Resp normal respiratory effort and no use of accessory muscles Effort and Inspection: able to speak in complete sentences Auscultation: rales diffuse (Improving) and diminished lung sounds; Negative for rhonchi or wheezes Percussion: Negative for dullness Cardio regular rate, S1 normal heart sound, S2 normal heart sound, no murmurs, no rub and no gallops Rhythm: abnormal rhythm irregularly irregular GI normal to inspection, nondistended, normoactive bowel sounds no CVA tenderness Extremity no clubbing, cyanosis or edema Skin no rashes or lesions noted Neuro oriented x3, CN's II-XII intact bilaterally, moves all extremities and no focal motor deficits Psych cooperative and affect normal Charges/Coding Visit Charges Inpatient E&M: 46955 Subs Hosp L2
--- NOTE | 2022-11-18 13:01 | CASEMGMT ---
Therapy notified SW that patient did fairly well physically and could probably go home. However, patient told them there is no way he can go home and care for himself. Patient told them his mind is not good anymore and he cannot care for himself. SW went to patient's room. Introduced self and role at [facility]. SW asked patient about his concerns with going home. Patient said there is no way he can go home and care for himself. SW told patient therapy said he did really well. Patient said his mind is not good anymore and he cannot care for himself. SW asked about assisted living and patient said he needs too much care for assisted living. SW tried to explain to patient that they would give him his medications, feed him meals, and help with bathing etc if needed. Patient insists he is still too much care for assisted living. SW told patient SW will try and see if SW can find a facility that will be able to take him. SW explained that insurance may not cover him for very long as he appears to need limited therapy. SW then explained that he will have to private pay or apply for Medicaid in [facility] to [facility] jail. Patient said he only gets Social Security and he gets around $2,400 a month. Patient said he will probably only be at the jail short term due to having a mass in his kidney. Patient told SW that didn't have a biopsy, but he is sure it is cancer. Patient said they told him there is no surgery that can be done. Patient said he is okay with that and he is, Ready to meet the Lord. SW spoke with patient about where he would like to go and he first asked about someplace close to [place] as that is where his nephew lives. Patient then mentioned a jail [address]. SW was able to figure out patient was talking about [facility]. SW then asked patient if he had any other choices in case they could not take him and he said that his nephew makes all his decisions as patient is not rational in his thinking. SW called patient's nephew Cliff. SW explained patient's thoughts on not being able to go home and not being able to care for himself due to his mind going. SW explained SW does not know patient well, but he appears to be fine physically. SW does not get the impression that patient has severe cognition issues. BRYCE told Cliff that patient did well with therapy, but SW can try and get him into a jail. BRYCE explained insurance will only pay for days 1-20 at 100% after that patient will have to pay around $190 per day or apply for Medicaid. Cliff verbalized understanding. Cliff had no suggestions on where patient should go. He lives in [facility]. Cliff said patient is confused about the power of workers compensation attorney. Patient thinks that now Cliff is in charge of everything. Cliff tried to tell patient he only makes decisions when patient is unable to do so. Patient still pays his own bills and writes his own checks. Cliff's joined the phone conversation and they both said they would like to talk with the doctor as patient is calling them telling them that he is dying of cancer from a mass in his kidney. SW let them know SW will ask the physician to give him a call. They did ask if patient [place] [facility]. SW asked physician to call patient's nephew to explain patient's medical care. Jacquelyn GALLO
--- NOTE | 2022-11-18 13:16 | PN.HOSP_ITS ---
Reason for Visit Reason for Visit: Follow-up for advanced lung fibrosis with shortness of breath and dyspnea on mild exertion. Diagnoses Hypertensive urgency (11/14/22) Unspecified atrial fibrillation (11/14/22) Pneumonia, unspecified organism (11/14/22) Acute respiratory failure with hypoxia (11/14/22) Other specified diseases of liver (11/14/22) Other obstructive and reflux uropathy (11/14/22) Cyst of kidney, acquired (11/14/22) Benign prostatic hyperplasia with lower urinary tract symptoms (11/14/22) Hypoxemia (11/14/22) Objective Data Objective Data Vital Signs: Vital Signs Temp Pulse Resp BP Pulse Ox O2 Del Method O2 Flow Rate 97.9 F 68 18 175/76 H 94 Nasal Cannula 2 11/18/22 08:00 11/18/22 08:00 11/18/22 08:00 11/18/22 08:00 11/18/22 08:00 11/18/22 10:00 11/18/22 10:00 Oxygen Flow Rate (L/min) 2 Oxygen Delivery Method Nasal Cannula Weight: 173 lb 8.061 oz Body Mass Index (BMI) 24.2 Intake & Output: Intake and Output for Last 24 Hours 11/16/22 11/17/22 11/18/22 23:59 23:59 23:59 Intake Total 610 / 610 475 / 475 50 / 50 Output Total 775 / 1175 1525 / 1925 650 / 650 Balance -165 / -565 -1050 / -1450 -600 / -600 Lab / Micro Data Result Diagrams: 11/18/22 04:16 11/18/22 04:16 Labs: Laboratory Results - last 24 hr 11/18/22 04:16: WBC 13.6 H, RBC 4.09 L, Hgb 13.2, Hct 39.2 L, MCV 95.8 H, MCH 32.3 H, MCHC 33.7, RDW Std Deviation 46.8 H, RDW Coeff of Sixto 13.2, Plt Count 428, MPV 10.1, Immature Gran % (Auto) 0.500, Neut % (Auto) 92.0 H, Lymph % (Auto) 4.2 L, [place] % (Auto) 3.2, Eos % (Auto) 0.0, Baso % (Auto) 0.1, Absolute Neuts (auto) 12.5 H, Absolute Lymphs (auto) 0.57 L, Nucleated RBC % 0, Differential Comment SCANNED 11/18/22 04:16: Sodium 138, Potassium 4.2, Chloride 101, Carbon Dioxide 30.0, Anion Gap 7, BUN 49 H, Creatinine 1.20, Estim Creat Clear Calc 47.93, Est GFR (MDRD) Af Amer 74, Est GFR (MDRD) Non-Af 61, BUN/Creatinine Ratio 40.8 H, Glucose 134 H, Calcium 8.9 Micro: Microbiology 11/15/22 15:35 Mucosa - Nose Respiratory Panel (PCR) - Final 11/15/22 01:11 Urine, Clean Catch Streptococcus pneumoniae Antigen (M - Final 11/14/22 23:10 Urine, Clean Catch Legionella Antigen - Final 11/14/22 21:03 Mucosa - Nose Influenza Types A,B Direct FA (RICARDA) - Final Physical Exam Narrative The patient states gradual but persistent improvement in shortness of breath. Denies hematuria. Physical exam: General: Fatigued, short of breath RADHA 24.2 kg/m?, frail HEENT: Atraumatic, PERRLA, EOMI, Normocephalic Oral: Mucosa moist. No Gingival or Mucosal Lesions/ Ulcerations Neck: Supple, No JVD, Negative Carotid Bruits Lungs: Air entry severely and diffusely diminished in both lungs. No obvious rhonchi or wheezing. Some dyspnea on exertion Cardiovascular: Irregular rate and rhythm, Normal S1, Normal S2, No murmurs Abdomen: bowel Sounds Present, Soft, Non-Distended. No palpable mass : Mild tenderness over right lumbar region on deep palpation, slightly better. No renal angle tenderness. No suprapubic tenderness. Extremities: No edema, Capillary Refill Less than 3 Seconds Skin: No rashes, No breakdown Musculoskeletal: No Tenderness to Palpation of Joints or Extremities Neurological: Cranial nerves II-XII grossly intact, DTR 2+/4 and Symmetrical Psych/Mental Status: Flat affect. Delirium resolved. Assessment & Plan Assessment/Plan (1) Hypoxia: (2) Kidney cysts: (3) Liver cyst: (4) Hypertensive urgency: (5) Atrial fibrillation: PLAN: Plan 87-year-old male was admitted with came to ED for generalized malaise, generalized abdominal pain, no appetite, failure to thrive over the last 2 to 3 months patient. No fever or chills. Patient does not have a PCP and has not done lab testing PCU for syncope for many years. 1. Abdominal pain, etiology unclear probably due to right renal hemorrhagic cyst with irritative and obstructive symptoms possible BPH: Has been increasing for last [address] abdomen pelvis individually reviewed and shows dense right renal cyst, probably hemorrhagic.Ultrasound of kidneys ordered. Urology consulted. As per urologist, does not look like malignancy but may be complicated cyst with hemorrhagic cyst. Started on tamsulosin 0.4 mg daily. 11/16: Discussed with the urologist Dr. Menjivar. Kidney ultrasound shows complicated, heterogenous, solid right renal cyst therefore suggestive of neoplasm. Dr. Menjivar suggested outpatient follow-up and patient is reluctant for invasive work-up or surgery. Abdominal pain is better. No hematuria noticed. 11/17: Patient stated he does not want operative treatment for solid neoplasm with suspicion of cancer. I urged him to follow with Dr. Menjivar. 11/18: I talked to the patient's son regarding the solid/heterogeneous cyst of right kidney. Cannot ascertain what his prognosis until patient has partial resection/biopsy. Usually operative resection is recommended as biopsy of the risk of his pending illness. 2. Bilateral multiple scattered nodules possible atypical pneumonia complicated with hypoxia. Chronic lung disease with shortness of breath for many years but acute worsening, exact etiology unclear possible undiagnosed COPD exacerbation Oxygen saturation in the 70s of ambulation. Started on bronchodilator, IV Solu- Medrol, Mucinex, IV antibiotics Rocephin and Zithromax. Patient was a chain smoker, about 3 packs daily for 30 years and then quit 40 years ago. CTA chest individually reviewed and shows scattered nodular bilateral densities with scattered tree-in-bud appearance. chronic lung disease. Negative for PE. Incentive spirometer ordered. Respiratory panel and COVID PCR ordered. Mildly elevated leukocytosis 11/16: Pulmonary consult suggested sputum culture but patient not having significant sputum for culture of fungus, atypical bacteria, nocardia or Acinetobacter. Need to follow-up in pulmonary clinic. Discussed with the director of employer services. Lasix 20 mg IV 1 dose ordered as diuretic challenge. 11/17: Pulmonary follow-up reviewed. Patient on 2 L of oxygen. Shortness of breath is better. wean off steroid from tomorrow morning. 3. Atrial fibrillation EKG showed atrial fibrillation. Of note patient does not follow-up with a doctor so it is unclear how long he has been in A-fib. TSH 4.79. Free T4 ordered. Serum magnesium and potassium normal. Heart rate is controlled. No anticoagulation because of a possible hemorrhagic cyst of right kidney. Heart rate is controlled. 4. Hypertensive urgency: BP in triage was 216/112. Most recent 144/65. Systolic blood pressure more than 180 on presentation. Patient reported that he has a diagnosis of hypertension but does not take any medication. In fact he has no PCP and follows up with no provider. 11/17: Blood pressure 162/66.Continue losartan 50 mg daily. 5. Atypical chest pain: Patient denies history of coronary artery disease or other cardiac disease denies family history of [place]. His family of a stroke and cancer. 2D echo shows mild concentric LVH with EF 75%, PASP 44 mmHg suggestive of mild pulmonary hypertension. Serial troponins are negative. ACS ruled out. Fasting profile shows LDL 70, HDL 37. 6. 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 No previous records to compare with. With patient age anticipates CKD. Creatinine is normal. Trend BMP. DVT prophylaxis: SCDs ordered. Total time of the visit including total time spent in counseling or coordination of care, (more than 50% of the total time, spent in obtaining medical information from nurses and other ancillary care providers,explaining to the patient about labs, imaging, diagnosis and management of active complex medical conditions), discussion with director of employer services, review of labs and imaging, clinical update to the patient's family's girlfriend near the bedside is 40 minutes. Clinical Impression(s) from Imaging Studies Abdomen/Pelvis CT 11/14/22 17:32 IMPRESSION: 1. Dense right renal cyst may be hemorrhagic, which could explain right-sided pain. 2. Bilateral lung base infiltrates/chronic lung disease. Electronically Signed: Noé Olvera MD at 19:25 EST , Chest X-Ray 11/14/22 18:50 IMPRESSION: Left lung base atelectasis/infiltrate. Electronically Signed: Noé Olvera MD at 20:43 EST , Chest CTA 11/14/22 20:59 IMPRESSION: Findings suspicious for multifocal pulmonary infection. Normal CTA chest examination, without a demonstrated pulmonary embolism or arterial dissection. Electronically Signed: Noé Olvera MD at 22:29 EST , Echocardiogram 11/14/22 22:39 Interpretation Summary Normal LV size. Left ventricular systolic function is normal. The estimated ejection fraction is 75 %. Mild concentric left ventricular hypertrophy. Unable to assess diastolic dysfunction due to arrhythmia. Pulmonary artery systolic pressure is 44 mmHg. Mild to moderately dilated aortic root. Ordering Physician: Andres Cortes Performed By: Niya Mackey RDCS Renal Ultrasound 11/16/22 08:00 IMPRESSION: Heterogeneous nodule in the lower pole of the right kidney as described. A neoplastic process should BE ruled out. 2. Cysts are seen within the left kidney. Charges/Coding Visit Charges Inpatient E&M: 05150 Subs Hosp L2
[2022-11-18] MEDS: predniSONE 20 MG Tablet 40 MG PO (14:21)
--- NOTE | 2022-11-18 14:52 | CASEMGMT ---
SW went back to patient's room to discuss placement again. SW told patient his nephew Cliff does not know anything about the facilities to help him pick. SW explained they asked SW to look at places that are on the [facility] side of [facility]. SW went over the [address] [facility] side of [facility] which included [place], [facility], and [facility]. Patient said he is fine with any of those. However, patient then said he was just talking with the boarder machine. Patient said he really feels he will need short term due to his illnesses. Patient said this hospital has helped him so much and he feels he would benefit from going to the hospital's unit. He had a great connection with the hospital boarder machine as well. SW explained that he will only have 20 days since he does not have a secondary insurance. SW told patient that he will have to pay around $200 a day or apply for Medicaid and go to another facility from there as they do not take Medicaid. Patient said he understands and really loves this hospital. SW did call and leave a message with referral. SW will reiterate with patient again tomorrow regarding the co-pays etc. Jacquelyn Beard LIQUID COMPOUNDER [place]O
--- NOTE | 2022-11-18 15:09 | CHAPLAIN ---
Type of Pastoral Visit ___ Initial Visit _x__ Follow-up Visit ___ On-call Visit ___ General Patient Visit ___ Spiritual Assessment ___ Family Conference ___ Bereavement ___ Rapid Response ___ Code Blue ___ Other (describe below) Pastoral Care Referral From _x__ Patient ___ Family ___ Nurse ___ Physician ___ Wood Crew Supervisor ___ Occupational Health Nurse Supervisor ___ Other (describe below) Sacrament/Intervention _x__ Active listening ___ Anointing ___ Scientologist ___ Bereavement ___ Communion _x__ Isabela exploration ___ ___ Life review _x__ Prayer ___ Reconciliation ___ Sacrament of Sick _x__ Supportive presence ___ Wedding ___ Other (describe below) Pastoral Comments patient sitting up in chair and welcomes this orthopedic radiologic technologist whom he recognizes from previous visit; pt states that he has been praying much and giving submission to the Lord; pt states that he is not confident in his mental abilities and that he does not want to go home; pt says that they have found a large mass on my kidney so it may not be a long time; pt states that he wants an ECF and that the staff is working on finding him one; pt praises this hospital and says he hopes he can stay here; pt welcomes presence of this orthopedic radiologic technologist and expresses enjoyment in talking with same; pt welcomes prayer and joins in the prayer himself; pt desires future visits of this orthopedic radiologic technologist
[2022-11-18] MEDS: Polyethylene Glycol 3350 17 GM PACKET PO (17:33)
[2022-11-18] MEDS: Tamsulosin HCl 0.4 MG Capsule PO (17:33)
[2022-11-19] VITALS (10 sets, daily range): BP systolic 149–158; BP diastolic 63–82; PULSE 53–77; RESP 16–18; TEMP 36.5–36.7; O2SAT 92–98
[2022-11-19 05:26] LABS: Anion Gap 5 (5-15); BUN 60 mg/dL (7-18); BUN/Creat Ratio 54.1 RATIO (10-20); Calcium,Total 8.8 mg/dL (8.5-10.1); Chloride 103 mmol/L (98-107); Creatinine, Serum 1.11 mg/dL (0.70-1.30); EST Glomerular Filtration Rate 67 mL/min (>60); Est Glom Filt Rate - Afr Amer 81 mL/min (>60); Estimated Creatinine Clearance 51.82 ml/min; Glucose 129 mg/dL (74-106); Potassium 4.2 mmol/L (3.5-5.1); Sodium Level 139 mmol/L (136-145)
--- NOTE | 2022-11-19 08:36 | PN.HOSP_ITS ---
Reason for Visit Reason for Visit: Diagnoses Hypertensive urgency (11/14/22) Unspecified atrial fibrillation (11/14/22) Pneumonia, unspecified organism (11/14/22) Acute respiratory failure with hypoxia (11/14/22) Other specified diseases of liver (11/14/22) Other obstructive and reflux uropathy (11/14/22) Cyst of kidney, acquired (11/14/22) Benign prostatic hyperplasia with lower urinary tract symptoms (11/14/22) Hypoxemia (11/14/22) Subjective Subjective Follow-up for advanced lung disease with fibrosis and dyspnea. Shortness of breath is improved. Patient still feels weak. Objective Data Objective Data Vital Signs: Vital Signs Temp Pulse Resp BP Pulse Ox O2 Del Method O2 Flow Rate 97.8 F 58 L 18 153/73 H 98 Nasal Cannula 2 11/19/22 04:00 11/19/22 04:00 11/19/22 04:00 11/19/22 04:00 11/19/22 08:00 11/19/22 08:00 11/19/22 08:00 Oxygen Flow Rate (L/min) 2 Oxygen Delivery Method Nasal Cannula Weight: 173 lb 8.061 oz Body Mass Index (BMI) 24.2 Intake & Output: Intake and Output for Last 24 Hours 11/17/22 11/18/22 11/19/22 23:59 23:59 23:59 Intake Total 475 / 475 720 / 720 120 / 120 Output Total 1525 / 1925 850 / 850 200 / 200 Balance -1050 / -1450 -130 / -130 -80 / -80 Lab / Micro Data Result Diagrams: 11/18/22 04:16 11/19/22 04:40 Labs: Laboratory Results - last 24 hr 11/19/22 04:40: Sodium 139, Potassium 4.2, Chloride 103, Carbon Dioxide 31.0, Anion Gap 5, BUN 60 H, Creatinine 1.11, Estim Creat Clear Calc 51.82, Est GFR (MDRD) Af Amer 81, Est GFR (MDRD) Non-Af 67, BUN/Creatinine Ratio 54.1 H, Glucose 129 H, Calcium 8.8 Micro: Microbiology 11/15/22 15:35 Mucosa - Nose Respiratory Panel (PCR) - Final 11/15/22 01:11 Urine, Clean Catch Streptococcus pneumoniae Antigen (M - Final 11/14/22 23:10 Urine, Clean Catch Legionella Antigen - Final 11/14/22 21:03 Mucosa - Nose Influenza Types A,B Direct FA (RICARDA) - Final Physical Exam Narrative The patient has persistent improvement in shortness of breath. Denies hematuria. Cough has improved. Physical exam: General: Fatigued, alert ambulatory x3, BMI 24.2 kg/m?, frail HEENT: Atraumatic, PERRLA, EOMI, Normocephalic Oral: Mucosa moist. No Gingival or Mucosal Lesions/ Ulcerations Neck: Supple, No JVD, Negative Carotid Bruits Lungs: Air entry severely and diffusely diminished in both lungs. No obvious rhonchi or wheezing. Mild to moderate dyspnea on exertion Cardiovascular: Irregular rate and rhythm, Normal S1, Normal S2, No murmurs Abdomen: bowel Sounds Present, Soft, Non-Distended. No palpable mass : No tenderness. No renal angle tenderness. No suprapubic tenderness. Extremities: No edema, Capillary Refill Less than 3 Seconds Skin: No rashes, No breakdown Musculoskeletal: No Tenderness to Palpation of Joints or Extremities Neurological: Cranial nerves II-XII grossly intact, DTR 2+/4 and Symmetrical Psych/Mental Status: Flat affect. Delirium resolved. Assessment & Plan Assessment/Plan (1) Hypoxia: (2) Kidney cysts: (3) Liver cyst: (4) Hypertensive urgency: (5) Atrial fibrillation: PLAN: Plan 87-year-old male was admitted with came to ED for generalized malaise, generalized abdominal pain, no appetite, failure to thrive over the last 2 to 3 months patient. No fever or chills. Patient does not have a PCP and has not done lab testing PCU for syncope for many years. 1. Abdominal pain, etiology unclear probably due to right renal hemorrhagic cyst with irritative and obstructive symptoms possible BPH: Has been increasing for last [address] abdomen pelvis individually reviewed and shows dense right renal cyst, probably hemorrhagic.Ultrasound of kidneys ordered. Urology consulted. As per urologist, does not look like malignancy but may be complicated cyst with hemorrhagic cyst. Started on tamsulosin 0.4 mg daily. 11/16: Discussed with the urologist Dr. Menjivar. 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 Dr. Menjivar suggested outpatient follow-up and patient is reluctant for invasive work-up or surgery. Abdominal pain is better. No hematuria noticed. 11/17: Patient stated he does not want operative treatment for solid neoplasm with suspicion of cancer. I urged him to follow with Dr. Menjivar. 11/18: I talked to the patient's son regarding the solid/heterogeneous cyst of right kidney. Cannot ascertain what his prognosis until patient has partial resection/biopsy. Usually operative resection is recommended as biopsy of the risk of his pending illness. 11/19: No abdominal tenderness. Rest as mentioned above. 2. Bilateral multiple scattered nodules possible atypical pneumonia complicated with hypoxia. Chronic lung disease with shortness of breath for many years but acute worsening, exact etiology unclear possible undiagnosed COPD exacerbation Oxygen saturation in the 70s of ambulation. Started on bronchodilator, IV Solu- Medrol, Mucinex, IV antibiotics Rocephin and Zithromax. Patient was a chain smoker, about 3 packs daily for 30 years and then quit 40 years ago. CTA chest individually reviewed and shows scattered nodular bilateral densities with scattered tree-in-bud appearance. chronic lung disease. Negative for PE. Incentive spirometer ordered. Respiratory panel and COVID PCR ordered. Mildly elevated leukocytosis 11/16: Pulmonary consult suggested sputum culture but patient not having significant sputum for culture of fungus, atypical bacteria, nocardia or Acinetobacter. Need to follow-up in pulmonary clinic. Discussed with the pul tractor engine assembler. Lasix 20 mg IV 1 dose ordered as diuretic challenge. 11/17: Pulmonary follow-up reviewed. Patient on 2 L of oxygen. Shortness of breath is better. wean off steroid from tomorrow morning. 11/19: Solu-Medrol transition to prednisone to wean over the next 12 days. 3. Atrial fibrillation EKG showed atrial fibrillation. Of note patient does not follow-up with a doctor so it is unclear how long he has been in A-fib. TSH 4.79. Free T4 ordered. Serum magnesium and potassium normal. Heart rate is controlled. No anticoagulation because of a possible hemorrhagic cyst of right kidney. Heart rate is controlled. 4. Hypertensive urgency: BP in triage was 216/112. Most recent 144/65. Systolic blood pressure more than 180 on presentation. Patient reported that he has a diagnosis of hypertension but does not take any medication. In fact he has no PCP and follows up with no provider. 11/17: Blood pressure 162/66.Continue losartan 50 mg daily. 5. Atypical chest pain: Patient denies history of coronary artery disease or other cardiac disease denies family history of [place]. His family of a stroke and cancer. 2D echo shows mild concentric LVH with EF 75%, PASP 44 mmHg sug gestive of mild pulmonary hypertension. Serial troponins are negative. ACS ruled out. Fasting profile shows LDL 70, HDL 37. 6. 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 11/19: On low-dose diuretic. Patient has mild pulmonary hypertension. 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 No previous records to compare with. With patient age anticipates CKD. Creatinine is normal. Trend BMP. DVT prophylaxis: SCDs ordered. Clinical Impression(s) from Imaging Studies Abdomen/Pelvis CT 11/14/22 17:32 IMPRESSION: 1. Dense right renal cyst may be hemorrhagic, which could explain right-sided pain. 2. Bilateral lung base infiltrates/chronic lung disease. Electronically Signed: Noé Olvera MD at 19:25 EST , Chest X-Ray 11/14/22 18:50 IMPRESSION: Left lung base atelectasis/infiltrate. Electronically Signed: Noé Olvera MD at 20:43 EST , Chest CTA 11/14/22 20:59 IMPRESSION: Findings suspicious for multifocal pulmonary infection. Normal CTA chest examination, without a demonstrated pulmonary embolism or arterial dissection. Electronically Signed: Noé Olvera MD at 22:29 EST , Echocardiogram 11/14/22 22:39 Interpretation Summary Normal LV size. Left ventricular systolic function is normal. The estimated ejection fraction is 75 %. Mild concentric left ventricular hypertrophy. Unable to assess diastolic dysfunction due to arrhythmia. Pulmonary artery systolic pressure is 44 mmHg. Mild to moderately dilated aortic root. Ordering Physician: Andres Cortes Performed By: Niya Mackey RDCS Renal Ultrasound 11/16/22 08:00 IMPRESSION: Heterogeneous nodule in the lower pole of the right kidney as described. A neoplastic process should BE ruled out. 2. Cysts are seen within the left kidney. Charges/Coding Visit Charges Inpatient E&M: 32454 Subs Hosp L2
[2022-11-19] MEDS: predniSONE 20 MG Tablet 40 MG PO (08:56)
[2022-11-19] MEDS: Losartan Potassium 25 MG Tablet 50 MG PO (08:56)
[2022-11-19] MEDS: guaiFENesin/D-Methorphan TAB.SR.12H 1 TABLET PO ×2 (08:56→22:32)
[2022-11-19] MEDS: Polyethylene Glycol 3350 17 GM PACKET PO (08:56)
[2022-11-19] MEDS: amLODIPine 5 MG Tablet PO (08:56)
[2022-11-19] MEDS: Aspirin 81 MG TAB.CHEW PO (08:56)
[2022-11-19] MEDS: Ceftriaxone 1 GM/50 ML BAG IV ×2 (08:56→22:32)
[2022-11-19] MEDS: Ensure Plus High Protein 120 ML LIQUID PO ×4 (08:56→22:32)
[2022-11-19] MEDS: Senna/Docusate Sodium 1 Tablet 2 TABLET PO (08:57)
--- NOTE | 2022-11-19 10:00 | CASEMGMT ---
BRYCE met with patient and let him know SW is not sure if SW will be able to get patient to a prison on his Medicare since he is doing well with therapy. SW let patient know it would be best if SW completed a Medicaid application with him. SW explained again that when he gets to day [facility] at the prison he will have to pay $200 per day. Patient said he does not have that money. SW told him that is why SW is completing a Medicaid application with him. Patient was still insistent that [facility] would be best and it would give him some time. SW let him know SW is not sure if they are going to take him or not. BRYCE completed Medicaid application with patient. BRYCE spoke with patient's nephew & POA Cliff letting him know above. BRYCE also let Cliff know that he would be patient's authorized rep with [facility] since he is patient's Healthcare Power of Township Supervisor. He was in agreement. BRYCE told him there is part of that form that he will need to sign. BRYCE told Cliff WU will let him know where BRYCE was able to find a place as soon as BRYCE knows. Jacquelyn Beard DELIVERY AGENT [place]
--- NOTE | 2022-11-19 13:21 | CASEMGMT ---
Medicaid application was sent to [facility]. SW was notified [facility] is not able to take patient. SW spoke with patient and he had no preferences. SW tried to go over places on the list and he did not know. BRYCE explained that SW will send a referral to [facility] as he mentioned this before and he was okay with that. BRYCE also told patient his nephew asked if he could go to a facility on the [place] of [facility]. BRYCE explained [facility], [facility], and [facility] are all on the northern end of [facility]. Patient was okay with any of the facilities. SW sent referrals to [facility], [facility], [facility], and [facility]. Await responses. Jacquelyn GALLO
--- NOTE | 2022-11-19 14:16 | CASEMGMT ---
Sushila from [facility] ([facility]) left BRYCE a message letting SW know they can accept patient. Sushila wanted a med list and nurses notes. BRYCE faxed med list and nurses handoffs to [facility]. BRYCE spoke with patient and let him know [facility] can take him. BRYCE asked patient if he would like to go to [facility] or wait and see what [facility], [place], and [facility] say. Patient said he would like to go to [facility]. BYRCE told patient BRYCE will work on this and let him know when this will take place. BRYCE called Sushila at [facility] and left her a voice mail requesting a return call regarding whether or not patient can come today. BRYCE notified the other facilities know via [employer] that patient chose another facility. BRYCE will also notify patient's nephew once BRYCE hears back from [facility]. Jacquelyn GALLO
--- NOTE | 2022-11-19 15:00 | CASEMGMT ---
Sushila called [facility] and said they can take patient tomorrow. [facility] notified physician and patient. BRYCE also called patient's nephew Delgado and let him know patient will be going to [facility] tomorrow. Delgado said BRYCE can e-mail him the form BRYCE needs him to sign. BRYCE e-mailed Delgado the Medicaid authorized asset protection representative form to sign. Plan: d/c to [facility] under skilled level of care. Jacquelyn Beard ELECTRICAL DESIGNER DRAFTERGemini GALLO
--- NOTE | 2022-11-19 15:17 | CASEMGMT ---
BRYCE received a signed copy of the [employer] Authorized Rep form from patient's nephew. BRYCE faxed this to [facility] and also let the know patient will be going to [facility]. Jacquelyn GALLO
[2022-11-19] MEDS: Tamsulosin HCl 0.4 MG Capsule PO (16:30)
[2022-11-19] MEDS: Furosemide 20 MG Tablet PO (16:30)
[2022-11-20 04:00] VITALS: BP 163/72; PULSE 53; RESP 18; TEMP 36.6; O2SAT 92
[2022-11-20 06:34] LABS: Anion Gap 5 (5-15); BUN 59 mg/dL (7-18); BUN/Creat Ratio 57.3 RATIO (10-20); Calcium,Total 8.4 mg/dL (8.5-10.1); Chloride 104 mmol/L (98-107); Creatinine, Serum 1.03 mg/dL (0.70-1.30); EST Glomerular Filtration Rate 73 mL/min (>60); Est Glom Filt Rate - Afr Amer 88 mL/min (>60); Estimated Creatinine Clearance 55.85 ml/min; Glucose 99 mg/dL (74-106); Potassium 4.2 mmol/L (3.5-5.1); Sodium Level 141 mmol/L (136-145)
[2022-11-20 07:50] VITALS: BP 155/63; PULSE 50; RESP 16; TEMP 36.6; O2SAT 92
[2022-11-20] MEDS: predniSONE 20 MG Tablet 40 MG PO (07:57)
[2022-11-20] MEDS: Aspirin 81 MG TAB.CHEW PO (07:57)
[2022-11-20] MEDS: Losartan Potassium 25 MG Tablet 50 MG PO (07:57)
[2022-11-20] MEDS: Senna/Docusate Sodium 1 Tablet 2 TABLET PO (07:58)
[2022-11-20] MEDS: guaiFENesin/D-Methorphan TAB.SR.12H 1 TABLET PO (07:58)
[2022-11-20] MEDS: Polyethylene Glycol 3350 17 GM PACKET PO (07:58)
[2022-11-20] MEDS: Ensure Plus High Protein 120 ML LIQUID PO (07:58)
[2022-11-20] MEDS: Furosemide 20 MG Tablet PO (08:03)
[2022-11-20] MEDS: Ceftriaxone 1 GM/50 ML BAG IV (08:03)
--- NOTE | 2022-11-20 08:23 | TREXTCAR_ITS ---
Diet Diet Order/Speech Therapy: 11/16/22 09:47 Diet: Cardiac - Heart Healthy Is pt able to select menu?: Yes Routine Orders/Code Status Suppository Type: Dulcolax 10mg Suppository Frequency: Daily PRN Code Status: DNRCC-A (No intubation) Therapies Weight Bearing: Weight bearing as tolerated Extremity Affected:: Bilateral Lower Physical Therapy: Eval and Treat Occupational Therapy: Eval and Treat Speech Therapy: Eval and Treat Problem/Diagnosis (1) Hypoxia: Status: Acute Code(s): R09.02 - Hypoxemia (2) Kidney cysts: Status: Acute Code(s): N28.1 - Cyst of kidney, acquired (3) Liver cyst: Status: Acute Code(s): K76.89 - Other specified diseases of liver (4) Hypertensive urgency: Status: Acute Code(s): I16.0 - Hypertensive urgency (5) Atrial fibrillation: Status: Acute Code(s): I48.91 - Unspecified atrial fibrillation Plan 87-year-old male was admitted with came to ED for generalized malaise, generalized abdominal pain, no appetite, failure to thrive over the last 2 to 3 months patient. No fever or chills. Patient does not have a PCP and has not done lab testing PCU for syncope for many years. 1. Abdominal pain, etiology unclear probably due to right renal hemorrhagic cyst with irritative and obstructive symptoms possible BPH: Has been increasing for last [address] abdomen pelvis individually reviewed and shows dense right renal cyst, probably hemorrhagic.Ultrasound of kidneys ordered. Urology consulted. As per urologist, does not look like malignancy but may be complicated cyst with hemorrhagic cyst. Started on tamsulosin 0.4 mg daily. 11/16: Discussed with the urologist Dr. Menjivar. Kidney ultrasound shows complicated, heterogenous, solid right renal cyst therefore suggestive of neoplasm. Dr. Menjivar suggested outpatient follow-up and patient is reluctant for invasive work-up or surgery. Abdominal pain is better. No hematuria noticed. 11/17: Patient stated he does not want operative treatment for solid neoplasm with suspicion of cancer. I urged him to follow with Dr. Menjivar. 11/18: I talked to the patient's son regarding the solid/heterogeneous cyst of right kidney. Cannot ascertain what his prognosis until patient has partial resection/biopsy. Usually operative resection is recommended as biopsy of the risk of his pending illness. 2: No abdominal tenderness. Rest as mentioned above. 2. Bilateral multiple scattered nodules possible atypical pneumonia complicated with hypoxia. Chronic lung disease with shortness of breath for many years but acute worsening, exact etiology unclear possible undiagnosed COPD exacerbation Oxygen saturation in the 70s of ambulation. Started on bronchodilator, IV Solu- Medrol, Mucinex, IV antibiotics Rocephin and Zithromax. Patient was a chain smoker, about 3 packs daily for 30 years and then quit 40 years ago. CTA chest individually reviewed and shows scattered nodular bilateral densities with scattered tree-in-bud appearance. chronic lung disease. Negative for PE. Incentive spirometer ordered. Respiratory panel and COVID PCR ordered. Mildly elevated leukocytosis 11/16: Pulmonary consult suggested sputum culture but patient not having si gnificant sputum for culture of fungus, atypical bacteria, nocardia or Acinetobacter. Need to follow-up in pulmonary clinic. Discussed with the scientific software developer. Lasix 20 mg IV 1 dose ordered as diuretic challenge. 11/17: Pulmonary follow-up reviewed. Patient on 2 L of oxygen. Shortness of breath is better. wean off steroid from tomorrow morning. 11/19: Solu-Medrol transition to prednisone to wean over the next 12 days. 3. Atrial fibrillation EKG showed atrial fibrillation. Of note patient does not follow-up with a doctor so it is unclear how long he has been in A-fib. TSH 4.79. Free T4 ordered. Serum magnesium and potassium normal. Heart rate is controlled. No anticoagulation because of a possible hemorrhagic cyst of right kidney. Heart rate is controlled. 4. Hypertensive urgency: BP in triage was 216/112. Most recent 144/65. Systolic blood pressure more than 180 on presentation. Patient reported that he has a diagnosis of hypertension but does not take any medication. In fact he has no PCP and follows up with no provider. 11/17: Blood pressure 162/66.Continue losartan 50 mg daily. 5. Atypical chest pain: Patient denies history of coronary artery disease or other cardiac disease denies family history of [place]. His family of a stroke and cancer. 2D echo shows mild concentric LVH with EF 75%, PASP 44 mmHg suggestive of mild pulmonary hypertension. Serial troponins are negative. ACS ruled out. Fasting profile shows LDL 70, HDL 37. 6. 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 11/19: On low-dose diuretic. Patient has mild pulmonary hypertension. 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 No previous records to compare with. With patient age anticipates CKD. Creatinine is normal. Trend BMP. DVT prophylaxis: SCDs ordered. Clinical Impression(s) from Imaging Studies Abdomen/Pelvis CT 11/14/22 17:32 IMPRESSION: 1. Dense right renal cyst may be hemorrhagic, which could explain right-sided pain. 2. Bilateral lung base infiltrates/chronic lung disease. Electronically Signed: Noé Olvera MD at 19:25 EST , Chest X-Ray 11/14/22 18:50 IMPRESSION: Left lung base atelectasis/infiltrate. Electronically Signed: Noé Olvera MD at 20:43 EST , Chest CTA 11/14/22 20:59 IMPRESSION: Findings suspicious for multifocal pulmonary infection. Normal CTA chest examination, without a demonstrated pulmonary embolism or arterial dissection. Electronically Signed: Noé Olvera MD at 22:29 EST , Echocardiogram 11/14/22 22:39 Interpretation Summary Normal LV size. Left ventricular systolic function is normal. The estimated ejection fraction is 75 %. Mild concentric left ventricular hypertrophy. Unable to assess diastolic dysfunction due to arrhythmia. Pulmonary artery systolic pressure is 44 mmHg. Mild to moderately dilated aortic root. Ordering Physician: Andres Cortes Performed By: Niya Mackey RDCS Renal Ultrasound 11/16/22 08:00 IMPRESSION: Heterogeneous nodule in the lower pole of the right kidney as described. A neoplastic process should BE ruled out. 2. Cysts are seen within the left kidney. Allergies/Procedures Done in Hospital Allergies No Known Allergies Allergy (Verified 11/14/22 17:06) Type of Care/Length of Stay Estimated LOS: Convalescent Care Less Than 30 days Type of Care Needed: Skilled Rehab Potential: Fair Prognosis: Fair Additional Orders/Day of Discharge Day of Discharge: 11/20/22 Dietary and Speech Recommendations Dietitian Recommendations/Changes: continue cardiac diet; if PO intake declines consider liberalizing diet to regular. Will continue Ensure to 120mL 4x/day considering risk of malnutrition w/ recent wt loss/poor PO intake. Discharge Plan Admission Admit Date/Time: 11/14/22 20:40 Primary Reason for Your Visit: Interstitial lung disease possible multiple scattered nodules/COPD Attending Provider: Rene Mejia Primary Care Provider: Care Physician,No Primary Consulting Providers: Andres Cortes ; Mamadou Gaona ; Robel Del Real ; Jaydon Casey ; Albaro Arroyo ; Kelley Mccoy LAW ENFORCEMENT OFFICER ; Andrews Menjivar Discharge Orders/Prescriptions Prescriptions: New polyethylene glycol 3350 17 gram Powder In Packet 17 g PO DAILY Qty: 0 0RF prednisone 20 mg Tablet 40 mg PO BREAKFAST Qty: 0 0RF Rx Instructions: 40 mg for 4 days, 30 mg for 4 days, 20 mg for 5 days and then 10 mg for 5 days. sennosides-docusate sodium [Stool Softener-Stimulant Laxat] 8.6-50 mg Tablet 2 tab PO BID Qty: 0 0RF tamsulosin 0.4 mg Capsule 0.4 mg PO DAILY@1730 Qty: 0 2RF bisacodyl 10 mg Suppository 10 mg [place] DAILY PRN (Reason: CONSTIPATION) Qty: 0 0RF furosemide 20 mg Tablet 20 mg PO DAILY PRN (Reason: leg edema or SOB) Qty: 0 0RF Mucinex DM 30-600 mg Tablet Extended Release 12 Hr 1 tab PO BID Qty: 0 0RF losartan 100 mg tablet 100 mg PO DAILY Qty: 30 2RF Rx Instructions: Hold for SBP less than 130 mmHg Eliquis 2.5 mg tablet 2.5 mg PO BID Qty: 30 0RF ipratropium-albuterol 0.5 mg-3 mg(2.5 mg base)/3 mL solution for nebulization 3 ml inhalation Q4H PRN (Reason: shortness of breath or wheezing) Qty: 180 0RF Rx Instructions: ICD 10- J44.9 Referrals / Follow Up: Andrews Menjivar MD [Med Staff - Active Staff] - Within 1 Month Jaydon Casey MD [Med Staff - Active Staff] - Within 2 Weeks (Possible interstitial lung disease/COPD) Care Physician,No Primary [Primary Care Provider] - Disposition Disposition (needs filled in before D/C Order can be placed): [facility]
--- NOTE | 2022-11-20 08:40 | PCM.DC.SUM ---
Providers Date of Admission: 11/14/22 Date of Discharge: 11/20/22 Primary Care Physician: Anna Primary Care Phys Consultations 11/15/22 08:55 Consult: Ed Transporter / Pulmonary Medicine Routine Consulting Provider: Pulmonary Medicine yovany Mckeon Reason for Consult: acute on chr SOB, Abnormal CT, ILD? EMERGENT Consult: No Notified: Yes Date Notified: 11/15/22 Time Notified: 08:55 Method of Notification: Text 11/15/22 09:56 Consult: Urology Routine Consulting Provider: Andrews Menjivar Reason for Consult: Right hemorrhagic cyst EMERGENT Consult: No Notified: Yes Date Notified: 11/15/22 Time Notified: 09:56 Method of Notification: Verbal Reason For Visit: HYPOXIA Diagnosis Discharge Diagnosis (1) Hypoxia: Status: Acute Code(s): R09.02 - Hypoxemia (2) Kidney cysts: Status: Acute Code(s): N28.1 - Cyst of kidney, acquired (3) Liver cyst: Status: Acute Code(s): K76.89 - Other specified diseases of liver (4) Hypertensive urgency: Status: Acute Code(s): I16.0 - Hypertensive urgency (5) Atrial fibrillation: Status: Acute Code(s): I48.91 - Unspecified atrial fibrillation Plan 87-year-old male was admitted with came to ED for generalized malaise, generalized abdominal pain, no appetite, failure to thrive over the last 2 to 3 months patient. No fever or chills. Patient does not have a PCP and has not done lab testing PCU for syncope for many years. 1. Abdominal pain, etiology unclear probably due to right renal hemorrhagic cyst with irritative and obstructive symptoms possible BPH: Has been increasing for last [address] abdomen pelvis individually reviewed and shows dense right renal cyst, probably hemorrhagic.Ultrasound of kidneys ordered. Urology consulted. As per urologist, does not look like malignancy but may be complicated cyst with hemorrhagic cyst. Started on tamsulosin 0.4 mg daily. 11/16: Discussed with the urologist Dr. Menjivar. Kidney ultrasound shows complicated, heterogenous, solid right renal cyst therefore suggestive of neoplasm. Dr. Menjivar suggested outpatient follow-up and patient is reluctant for invasive work-up or surgery. Abdominal pain is better. No hematuria noticed. 11/17: Patient stated he does not want operative treatment for solid neoplasm with suspicion of cancer. I urged him to follow with Dr. Menjivar. 11/18: I talked to the patient's son regarding the solid/heterogeneous cyst of right kidney. Cannot ascertain what his prognosis until patient has partial resection/biopsy. Usually operative resection is recommended as biopsy of the risk of his pending illness. 11/19: No abdominal tenderness. Rest as mentioned above. 11/19: Urine is clear. UA shows 0 RBC, 0 WBC, nitrite and LE negative. UTI ruled out. Continue Flomax. Follow-up with urologist. 2. Bilateral multiple scattered nodules possible atypical pneumonia complicated with hypoxia. Chronic lung disease with shortness of breath for many years but acute worsening, exact etiology unclear possible undiagnosed COPD exacerbation Oxygen saturation in the 70s of ambulation. Started on bronchodilator, IV Solu-Medrol, Mucinex, IV antibiotics Rocephin and Zithromax. Patient was a chain smoker, about 3 packs daily for 30 years and then quit 40 years ago. CTA chest individually reviewed and shows scattered nodular bilateral densities with scattered tree-in-bud appearance. chronic lung disease. Negative for PE. Incentive spirometer ordered. Respiratory panel and COVID PCR ordered. Mildly elevated leukocytosis 11/16: Pulmonary consult suggested sputum culture but patient not having significant sputum for culture of fungus, atypical bacteria, nocardia or Acinetobacter. Need to follow-up in pulmonary clinic. Discussed with the drawing in machine tender helper. Lasix 20 mg IV 1 dose ordered as diuretic challenge. 11/17: Pulmonary follow-up reviewed. Patient on 2 L of oxygen. Shortness of breath is better. wean off steroid from tomorrow morning. 11/19: Prescription for prolonged taper of prednisone given. The patient had 6 days of IV antibiotic. Infectious work-up was negative.Therefore antibiotic prescription was not given 3. Atrial fibrillation EKG showed atrial fibrillation. Of note patient does not follow-up with a doctor so it is unclear how long he has been in A-fib. TSH 4.79. Free T4 ordered. Serum magnesium and potassium normal. Heart rate is controlled. No anticoagulation because of a possible hemorrhagic cyst of right kidney. Heart rate is controlled. 11/20: Heart rate is controlled. Patient given low-dose of Eliquis to prevent stroke. Free T4 normal, 1.02 4. Hypertensive urgency: BP in triage was 216/112. Most recent 144/65. Systolic blood pressure more than 180 on presentation. Patient reported that he has a diagnosis of hypertension but does not take any medication. In fact he has no PCP and follows up with no provider. 11/17: Blood pressure 162/66.Continue losartan 50 mg daily. 11/18: Patient is discharged on losartan 100 mg daily. If blood pressure still high, can add low-dose HCTZ. 5. Atypical chest pain: Patient denies history of coronary artery disease or other cardiac disease denies family history of [place]. His family of a stroke and cancer. 2D echo shows mild concentric LVH with EF 75%, PASP 44 mmHg suggestive of mild pulmonary hypertension. Serial troponins are negative. ACS ruled out. Fasting profile shows LDL 70, HDL 37. 6. 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 11/19: On low-dose diuretic. Patient has mild pulmonary hypertension. Discussed with the drawing in machine tender helper 11/20: Patient does not have leg swelling or pulmonary edema. Low-dose diuretic as needed for shortness of breath or pulmonary edema. 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 No previous records to compare with. With patient age anticipates CKD. Creatinine is normal. Trend BMP. DVT prophylaxis: SCDs ordered. Discharge medication reconciliation done. Discharge follow-up instructions completed. Discharge process discussed with the patient and all questions were answered to patient's satisfaction. Discharged custodial. Total time spent, exact 35 minutes on discharge meds reconciliation, examination, coordination of care with nurses and ancillary staff, review of imaging and blood test and discussion with the patient on follow-up instructions. Clinical Impression(s) from Imaging Studies Abdomen/Pelvis CT 11/14/22 17:32 IMPRESSION: 1. Dense right renal cyst may be hemorrhagic, which could explain right-sided pain. 2. Bilateral lung base infiltrates/chronic lung disease. Electronically Signed: Noé Olvera MD at 19:25 EST , Chest X-Ray 11/14/22 18:50 IMPRESSION: Left lung base atelectasis/infiltrate. Electronically Signed: Noé Olvera MD at 20:43 EST , Chest CTA 11/14/22 20:59 IMPRESSION: Findings suspicious for multifocal pulmonary infection. Normal CTA chest examination, without a demonstrated pulmonary embolism or arterial dissection. Electronically Signed: Noé Olvera MD at 22:29 EST , Echocardiogram 11/14/22 22:39 Interpretation Summary Normal LV size. Left ventricular systolic function is normal. The estimated ejection fraction is 75 %. Mild concentric left ventricular hypertrophy. Unable to assess diastolic dysfunction due to arrhythmia. Pulmonary artery systolic pressure is 44 mmHg. Mild to moderately dilated aortic root. Ordering Physician: Andres Cortes Performed By: Niya Mackey RDCS Renal Ultrasound 11/16/22 08:00 IMPRESSION: Heterogeneous nodule in the lower pole of the right kidney as described. A neoplastic process should BE ruled out. 2. Cysts are seen within the left kidney. Medications at Discharge Home Medications apixaban 2.5 mg tablet (Eliquis) 2.5 mg PO BID #30 tabs 11/20/22 bisacodyl 10 mg rectal suppository 10 mg [place] DAILY PRN CONSTIPATION #0 ea 11/20/22 dextromethorphan-guaifenesin 30 mg-600 mg tablet extended [id number] hr (Mucinex DM) 1 tab PO BID #0 tabs 11/20/22 furosemide 20 mg tablet 20 mg PO DAILY PRN leg edema or SOB #0 tabs 11/20/22 ipratropium 0.5 mg-albuterol 3 mg (2.5 mg base)/3 mL nebulization soln 3 ml inhalation Q4H PRN shortness of breath or wheezing #180 mL 11/20/22 losartan 100 mg tablet 100 mg PO DAILY #30 tabs 11/20/22 polyethylene glycol 3350 17 gram oral powder packet 17 g PO DAILY #0 ea 11/20/22 prednisone 20 mg tablet 40 mg PO BREAKFAST #0 tabs 11/20/22 sennosides 8.6 mg-docusate sodium 50 mg tablet (Stool Softener-Stimulant Laxative) 2 tab PO BID #0 tabs 11/20/22 tamsulosin 0.4 mg capsule 0.4 mg PO DAILY@1730 #0 caps 11/20/22 Physical Exam Narrative No hypoxia. Patient is not short of breath at rest. Urine is clear. Denies hematuria. Cough has improved. Physical exam: General: alert, and oriented x3, BMI 24.2 kg/m?, frail HEENT: Atraumatic, PERRLA, EOMI, Normocephalic Oral: Mucosa moist. No Gingival or Mucosal Lesions/ Ulcerations Neck: Supple, No JVD, Negative Carotid Bruits Lungs: Air entry severely and diffusely diminished in both lungs. No obvious rhonchi or wheezing. moderate dyspnea on exertion Cardiovascular: Irregular rate and rhythm, Normal S1, Normal S2, No murmurs Abdomen: bowel Sounds Present, Soft, Non-Distended. No palpable mass : No tenderness. No renal angle tenderness. No suprapubic tenderness. Extremities: No edema, Capillary Refill Less than 3 Seconds Skin: No rashes, No breakdown Musculoskeletal: No Tenderness to Palpation of Joints or Extremities Neurological: Cranial nerves II-XII grossly intact, DTR 2+/4 and Symmetrical Psych/Mental Status: Flat affect. Delirium resolved. Weight / BMI Weight Weight: 173 lb 8.061 oz Body Mass Index (BMI) 24.2 ABG / Lab / Microbiology Data Result Diagrams: 11/18/22 04:16 11/20/22 04:50 Laboratory: Laboratory Results - last 24 hr 11/20/22 04:50: Sodium 141, Potassium 4.2, Chloride 104, Carbon Dioxide 32.0, Anion Gap 5, BUN 59 H, Creatinine 1.03, Estim Creat Clear Calc 55.85, Est GFR (MDRD) Af Amer 88, Est GFR (MDRD) Non-Af 73, BUN/Creatinine Ratio 57.3 H, Glucose 99, Calcium 8.4 L Microbiology: Microbiology 11/15/22 15:35 Mucosa - Nose Respiratory Panel (PCR) - Final 11/15/22 01:11 Urine, Clean Catch Streptococcus pneumoniae Antigen (M - Final 11/14/22 23:10 Urine, Clean Catch Legionella Antigen - Final 11/14/22 21:03 Mucosa - Nose Influenza Types A,B Direct FA (RICARDA) - Final Meaningful Use Info Meaningful Use Diagnoses (Choose all that apply): None applicable Discharge Plan Admission Admit Date/Time: 11/14/22 20:40 Primary Reason for Your Visit: Interstitial lung disease possible multiple scattered nodules/COPD Attending Provider: Rene Mejia Primary Care Provider: Care Physician,Anna Primary Consulting Providers: Andres Cortes ; Mamadou Gaona ; Robel Del Real ; Jaydon Casey ; Albaro Arroyo ; Kelley Mccoy NP ; Andrews Menjivar Discharge Orders/Prescriptions Prescriptions: New polyethylene glycol 3350 17 gram Powder In Packet 17 g PO DAILY Qty: 0 0RF prednisone 20 mg Tablet 40 mg PO BREAKFAST Qty: 0 0RF Rx Instructions: 40 mg for 4 days, 30 mg for 4 days, 20 mg for 5 days and then 10 mg for 5 days. sennosides-docusate sodium [Stool Softener-Stimulant Laxat] 8.6-50 mg Tablet 2 tab PO BID Qty: 0 0RF tamsulosin 0.4 mg Capsule 0.4 mg PO DAILY@1730 Qty: 0 2RF bisacodyl 10 mg Suppository 10 mg [place] DAILY PRN (Reason: CONSTIPATION) Qty: 0 0RF furosemide 20 mg Tablet 20 mg PO DAILY PRN (Reason: leg edema or SOB) Qty: 0 0RF Mucinex DM 30-600 mg Tablet Extended Release 12 Hr 1 tab PO BID Qty: 0 0RF losartan 100 mg tablet 100 mg PO DAILY Qty: 30 2RF Rx Instructions: Hold for SBP less than 130 mmHg Eliquis 2.5 mg tablet 2.5 mg PO BID Qty: 30 0RF ipratropium-albuterol 0.5 mg-3 mg(2.5 mg base)/3 mL solution for nebulization 3 ml inhalation Q4H PRN (Reason: shortness of breath or wheezing) Qty: 180 0RF Rx Instructions: ICD 10- J44.9 Referrals / Follow Up: Andrews Menjivar MD [Med Staff - Active Staff] - Within 1 Month Jaydon Casey MD [Med Staff - Active Staff] - Within 2 Weeks (Possible interstitial lung disease/COPD) Care Physician,No Primary [Primary Care Provider] - Disposition Disposition (needs filled in before D/C Order can be placed): Detention Facility Charges/Coding Visit Charges Inpatient E&M: 08754 Disch Hosp >30min
--- NOTE | 2022-11-20 09:16 | CASEMGMT ---
BRYCE faxed orders to [facility] ([facility]) as well as sent them via [employer]. Await COVID test. BRYCE spoke with patient and his girlfriend. Patient is no longer requiring O2. BRYCE told patient that SW can set up transport to [facility], but it will not be covered by insurance. Patient said his girlfriend could take him. Plan: d/c to [facility] under skilled level of care on a PASRR. Patient's significant other will transport via private vehicle. Jacquelyn GALLO
--- NOTE | 2022-11-20 10:02 | CASEMGMT ---
BRYCE faxed COVID test to [facility] as well as sent it via [employer]. Jacquelyn Beard RUBBER GASKET INSPECTOR TRIMMER RELIGIOUS LEADER
--- NOTE | 2022-11-20 10:17 | PHA.DC.MR ---
Pharmacy Service has performed discharge medication reconciliation for this patient upon transfer to [facility]. Home Medications apixaban 2.5 mg tablet (Eliquis) 2.5 mg PO BID #30 tabs 11/20/22 bisacodyl 10 mg rectal suppository 10 mg [place] DAILY PRN CONSTIPATION #0 ea 11/20/22 dextromethorphan-guaifenesin 30 mg-600 mg tablet extended [id number] hr (Mucinex DM) 1 tab PO BID #0 tabs 11/20/22 furosemide 20 mg tablet 20 mg PO DAILY PRN leg edema or SOB #0 tabs 11/20/22 ipratropium 0.5 mg-albuterol 3 mg (2.5 mg base)/3 mL nebulization soln 3 ml inhalation Q4H PRN shortness of breath or wheezing #180 mL 11/20/22 losartan 100 mg tablet 100 mg PO DAILY #30 tabs 11/20/22 polyethylene glycol 3350 17 gram oral powder packet 17 g PO DAILY #0 ea 11/20/22 prednisone 20 mg tablet 40 mg PO BREAKFAST #0 tabs 11/20/22 sennosides 8.6 mg-docusate sodium 50 mg tablet (Stool Softener-Stimulant Laxative) 2 tab PO BID #0 tabs 11/20/22 tamsulosin 0.4 mg capsule 0.4 mg PO DAILY@1730 #0 caps 11/20/22 The patient's discharge medication list was reviewed for discrepancies and discrepancies were resolved.
[2022-11-20] MEDS: amLODIPine 5 MG Tablet PO (10:20)
--- NOTE | 2022-11-20 10:31 | NURSING ---
report called to Kriss AGUIRRE at [facility]
--- NOTE | 2022-11-20 10:37 | CASEMGMT ---
BRYCE called [facility] and let Celeste know patient is on his way. BRYCE spoke with Sushila earlier this am and let her know patient will be coming before noon and she was fine with this. Sushila was in a meeting. Plan: d/c to [facility] under skilled level of care on a PASRR. Patient's significant other transported via private vehicle. Jacquelyn Beard [employer] [place]
== END 2022-11-20 10:35 | disposition skilled nursing facility (03) | DRG 193 ==
LOC: ED 21:07 → PCU 22:05
PROVIDERS: Internal Medicine Critical Care Medicine; Nurse Practitioner; Admitting Provider Hospitalist; Emergency Provider Student in an Organized Health Care Education/Training Program; Visit Provider Internal Medicine
DX: J18.9 Pneumonia, unspecified organism (principal); I50.33 Acute on chronic diastolic (congestive) heart failure; G93.41 Metabolic encephalopathy; D84.9 Immunodeficiency, unspecified; J44.0 Chronic obstructive pulmonary disease with (acute) lower respiratory infection; I13.0 Hypertensive heart and chronic kidney disease with heart failure and stage 1 through stage 4 chronic kidney disease, or unspecified chronic kidney disease; J44.1 Chronic obstructive pulmonary disease with (acute) exacerbation; I27.20 Pulmonary hypertension, unspecified; I48.91 Unspecified atrial fibrillation; J84.10 Pulmonary fibrosis, unspecified; K76.89 Other specified diseases of liver; I12.9 Hypertensive chronic kidney disease with stage 1 through stage 4 chronic kidney disease, or unspecified chronic kidney disease; I16.0 Hypertensive urgency; N18.2 Chronic kidney disease, stage 2 (mild); N40.1 Benign prostatic hyperplasia with lower urinary tract symptoms; R62.7 Adult failure to thrive; Z82.3 Family history of stroke; N13.9 Obstructive and reflux uropathy, unspecified; N28.1 Cyst of kidney, acquired; Z87.891 Personal history of nicotine dependence; Z66 Do not resuscitate
CPT/HCPCS: 36415; 71045; 71275; 74177; 76770; 80048; 80061; 80076; 81001; 83690; 83735; 83880; 84145; 84439; 84443; 84484; 85025; 87449; 87633; 87635; 87804; 87811; 93005; 93306; 93975; 94640; 94668; 97110; 97116; 97162; 97166; 97535; 97802; 97803; 99252; 99284; J7030; Q9967; A4216; G0463; J1940; J2405; U0003; U0005

== ENCOUNTER → 2022-11-30 | Outpatient (REF) | payer MEDICARE, SELFPAY ==
[2022-11-30 09:06] LABS: Absolute Lymphocyte Count 1.45 X10^3/uL (0.83-4.51); Absolute Neutrophil Count 10.3 X10^3/uL (2.0-7.7); Basophil# 0.02 X10^3/uL; Basophil% 0.2 % (0-1); Eosinophil# 0.07 X10^3/uL; Eosinophils% 0.5 % (0-5); Hematocrit 36.8 % (40-54); Lymphocyte # 1.45 X10^3/ul (0.83-4.51); Lymphocyte % 11.3 % (19-41); Mean Corp Hgb Conc 32.6 g/dL (32-36); Mean Corpuscular Hgb 31.9 pg (27.0-32.0); Mean Corpuscular Volume 97.9 fL (80-94); Mean Platelet Vol. 9.8 fl (6.2-12.0); Monocyte# 0.95 X10^3/uL; Monocyte% 7.4 % (0-10); NRBC Flagged by Analyzer 0 % (0-5); Neutrophil # 10.27 X10^3/uL (2.7-7.7); Neutrophil % 80.1 % (47-70); Platelet Count 364 K/mm3 (150-450); RBC Distribution Width CV 13.6 % (11.6-14.6); RBC Distribution Width SD 48.8 fl (35.1-43.9); Red Blood Count 3.76 M/mm3 (4.6-6.2); White Blood Count 12.8 K/mm3 (4.4-11.0)
[2022-11-30 09:20] LABS: Anion Gap 6 (5-15); BUN 31 mg/dL (7-18); BUN/Creat Ratio 38.2 RATIO (10-20); Calcium,Total 8.3 mg/dL (8.5-10.1); Chloride 108 mmol/L (98-107); Creatinine, Serum 0.81 mg/dL (0.70-1.30); EST Glomerular Filtration Rate 96 mL/min (>60); Est Glom Filt Rate - Afr Amer 116 mL/min (>60); Glucose 75 mg/dL (74-106); Potassium 4.6 mmol/L (3.5-5.1); Sodium Level 139 mmol/L (136-145)
== END ==
LOC: OLS.WCC 04:00
PROVIDERS: Visit Provider Family Medicine
DX: I48.91 Unspecified atrial fibrillation (principal); N40.0 Benign prostatic hyperplasia without lower urinary tract symptoms; I50.9 Heart failure, unspecified; J18.9 Pneumonia, unspecified organism
CPT/HCPCS: 36415; 80048; 85025

== ENCOUNTER → 2023-01-12 | Outpatient (CLI) | payer MEDICARE, MEDICAID, SELFPAY ==
--- NOTE | 2023-01-12 14:28 | PFTCOMP_ITS ---
COMPLETE PULMONARY FUNCTION TEST INTERPRETATION Brief HPI: Patient is an 87-year-old male, currently under the care of Dr. Casey, who presents to [facility] for complete pulmonary function tests secondary to diagnosis of pneumonitis. Respiratory therapist reports good effort and reproducible results. Interpretation: Forced expiration spirometry shows a moderately severe large airways obstructive ventilatory defect with an FEV1 of 53% predicted. There is no significant bronchodilator response by strict ATS criteria. Spirograms are of good quality and plateau slowly, indicating slowly emptying areas of the lungs. The respiratory flow volume loop shows decreased expiratory flow rates at all lung volumes consistent with airway obstruction. Lung volumes by body plethysmography show a normal total lung capacity at 6.16 L, 94% predicted. All other lung volumes are within normal limits. Diffusion capacity by carbon monoxide is decreased at 41% predicted. The airway resistance is elevated. No previous pulmonary function tests were available for review. Impression: Irreversible moderately severe large airways obstructive ventilatory defect with a symmetric reduction in diffusion capacity
== END | disposition home or self-care (01) ==
PROVIDERS: Referring Provider Internal Medicine; Visit Provider Internal Medicine
DX: R93.89 Abnormal findings on diagnostic imaging of other specified body structures (principal); Z87.891 Personal history of nicotine dependence
CPT/HCPCS: 94060; 94726; 94729

== ENCOUNTER 2023-01-18 14:41 | Outpatient (CLI) | payer MEDICARE, MEDICAID, SELFPAY ==
--- NOTE | 2023-01-18 14:43 | CT_ITS ---
EXAM: CT CHEST WITHOUT INTRAVENOUS CONTRAST CLINICAL INDICATION: atypical pneumonitis followup TECHNIQUE: Helically acquired images were obtained of the chest without intravenous contrast. This CT exam was performed using one or more of the following dose reduction techniques: automated exposure control, adjustment of the mA and/or kV according to patient size, and/or use of iterative reconstruction technique. This report was created using [employer] report generation technology. COMPARISON: 11/14/2022. FINDINGS: LUNGS AND PLEURAL SPACES: Mild scarring in the lung bases without significant change from the prior study. Mild groundglass opacities in the left lung apex show no significant change. Mild scarring in the superior segment of the left lower lobe. Mild centrilobular emphysema in the upper lobes. No mass. No pleural effusion or thickening. No pneumothorax. HEART: Unremarkable. Heart size is normal. No pericardial effusion. No significant coronary artery calcifications. MEDIASTINUM: Unremarkable. No mediastinal or hilar adenopathy. Esophagus is unremarkable. No hiatal hernia. THYROID: Unremarkable. No thyroid lesions. BONES/JOINTS: Unremarkable. No suspicious lytic or blastic abnormality. VASCULATURE: Unremarkable. Thoracic aorta is non-dilated. LIVER: Low-attenuation lesions in the liver measure up to 2.7 cm. These are stable and appears cystic on the prior study. CT/Chest without Contrast IMPRESSION: 1. Mild opacities in the left upper lobe may represent scarring or pneumonitis. 2. Mild COPD. 3. Mild scarring bilaterally. Electronically Signed: Yolanda Murillo MD at 23:18 EDT Reading Location ID and State: [id number] / Tel , Service support ,
== END 2023-01-18 23:59 | disposition home or self-care (01) ==
PROVIDERS: Referring Provider Internal Medicine; Visit Provider Internal Medicine
DX: J18.9 Pneumonia, unspecified organism (principal); I48.91 Unspecified atrial fibrillation; R09.02 Hypoxemia; I10 Essential (primary) hypertension; Z79.899 Other long term (current) drug therapy
CPT/HCPCS: 36415; 71250; 80048; 85025

== ENCOUNTER → 2023-01-18 | Outpatient (REF) | payer MEDICARE, SELFPAY ==
[2023-01-18 08:46] LABS: Absolute Lymphocyte Count 1.66 X10^3/uL (0.83-4.51); Absolute Neutrophil Count 3.8 X10^3/uL (2.0-7.7); Basophil# 0.03 X10^3/uL; Basophil% 0.5 % (0-1); Eosinophils% 4.6 % (0-5); Hematocrit 35.9 % (40-54); Hemoglobin 12.1 g/dL (13.0-16.5); Lymphocyte # 1.66 X10^3/ul (0.83-4.51); Lymphocyte % 25.7 % (19-41); Mean Corp Hgb Conc 33.7 g/dL (32-36); Mean Corpuscular Hgb 32.9 pg (27.0-32.0); Mean Corpuscular Volume 97.6 fL (80-94); Mean Platelet Vol. 9.7 fl (6.2-12.0); Monocyte# 0.72 X10^3/uL; Monocyte% 11.1 % (0-10); NRBC Flagged by Analyzer 0 % (0-5); Neutrophil # 3.75 X10^3/uL (2.7-7.7); Neutrophil % 57.9 % (47-70); Platelet Count 318 K/mm3 (150-450); RBC Distribution Width CV 14.3 % (11.6-14.6); RBC Distribution Width SD 51.7 fl (35.1-43.9); Red Blood Count 3.68 M/mm3 (4.6-6.2); White Blood Count 6.5 K/mm3 (4.4-11.0)
[2023-01-18 09:11] LABS: Anion Gap 4 (5-15); BUN 17 mg/dL (7-18); BUN/Creat Ratio 15.2 RATIO (10-20); Calcium,Total 8.4 mg/dL (8.5-10.1); Chloride 108 mmol/L (98-107); Creatinine, Serum 1.12 mg/dL (0.70-1.30); EST Glomerular Filtration Rate 66 mL/min (>60); Est Glom Filt Rate - Afr Amer 80 mL/min (>60); Glucose 95 mg/dL (74-106); Potassium 4.2 mmol/L (3.5-5.1); Sodium Level 138 mmol/L (136-145)
== END | disposition home or self-care (01) ==
LOC: OLS.WCC 04:00
PROVIDERS: Referring Provider Family Medicine; Visit Provider Family Medicine
DX: I48.91 Unspecified atrial fibrillation (principal); I10 Essential (primary) hypertension; Z79.899 Other long term (current) drug therapy
CPT/HCPCS: 36415; 80048; 85025

== ENCOUNTER → 2023-02-12 | Outpatient (REF) | payer MEDICARE, MEDICAID, SELFPAY ==
[2023-02-12 07:42] LABS: Hemoglobin 13.7 g/dL (13.0-16.5); Mean Corp Hgb Conc 32.6 g/dL (32-36); Mean Corpuscular Hgb 32.9 pg (27.0-32.0); Mean Corpuscular Volume 100.7 fL (80-94); Platelet Count 461 K/mm3 (150-450); RBC Distribution Width CV 13.5 % (11.6-14.6); RBC Distribution Width SD 50.4 fl (35.1-43.9); Red Blood Count 4.17 M/mm3 (4.6-6.2); White Blood Count 9.2 K/mm3 (4.4-11.0)
[2023-02-12 07:58] LABS: Anion Gap 6 (5-15); BUN 20 mg/dL (7-18); BUN/Creat Ratio 15.2 RATIO (10-20); Chloride 106 mmol/L (98-107); Creatinine, Serum 1.32 mg/dL (0.70-1.30); EST Glomerular Filtration Rate 55 mL/min (>60); Est Glom Filt Rate - Afr Amer 66 mL/min (>60); Glucose 103 mg/dL (74-106); Potassium 3.9 mmol/L (3.5-5.1); Sodium Level 141 mmol/L (136-145)
[2023-02-12 08:15] LABS: BNP,B-Type NATRIURETIC PEPTIDE 62.1 pg/mL (0-100)
== END | disposition home or self-care (01) ==
LOC: OLS.WCC 05:00
PROVIDERS: Visit Provider Family Medicine
DX: N40.0 Benign prostatic hyperplasia without lower urinary tract symptoms (principal); I11.0 Hypertensive heart disease with heart failure; I50.9 Heart failure, unspecified; J44.9 Chronic obstructive pulmonary disease, unspecified; Z79.899 Other long term (current) drug therapy
CPT/HCPCS: 36415; 80048; 83880; 85027